=== PATIENT | female | born 1965 | race Caucasian/White ===

== ENCOUNTER 2025-03-07 08:53 | Outpatient (AMB) | payer OTHER, SELFPAY ==
--- OUTSIDE RECORDS SUMMARY | 2023-11-04 04:30 | XMS_ITS ---
Author Organization [facility] Prac mila Address [address] [place] [address] Care Team Providers Care Sack Department Supervisor Name Role Phone Ernestine Pace Primary Care Provider PazKhangah Unavailable [phone] REASON FOR VISIT CPE Encounters Encounter Location Date Provider Diagnosis [facility] [address] [place] [phone] 2023 Renae Mullen Plan Of Treatment Next Appt Details Provider Name:Renae Mullen, 04/05/2025 08:30:00 AM, [address] [place] [address], [phone], Progress Notes * DAVID CAMILA ADOB:[birth year] (59 yo F)Acc No.[id number]:11/04/2023 Progress Notes Patient: CAMLIA JON Provider: BRIAN Rivas :1965 A ge:58 Y S ex:Female Date:11/04/2023 C HN#:[id number] Address:[address] [place] [address] KAYCEE CERVANTES RSRia, [id number] Pcp:Ernestine Pace Subjective: * Chief Complaints: * C PE Care Plan Details* * Electronic signature of Steffanie Mullen PA-C on 03/07/2025 at 09:42 AM EDT Sign off status: Pending * Provider: BRIAN Rivas Date: 0 11/04/2023 Generated for Swetha coyle/Denita/eTransmitting on: 1 09:42 AM EDT
--- OUTSIDE RECORDS SUMMARY | 2024-01-25 05:00 | XMS_ITS ---
Author Organization [facility] mila Address [address] [place] [address] Care Team Providers Care Point Of Care Specialist Name Role Phone Ernestine Pace Primary Care Provider PazKhangah Unavailable [phone] REASON FOR VISIT CPE Encounters Encounter Location Date Provider Diagnosis [facility] [address] [place] [phone] 2023 Renae Mullen Plan Of Treatment Next Appt Details Provider Name:Renae Mullen, 04/05/2025 08:30:00 AM, [address] [place] [address], [phone], Progress Notes * DAVID CAMILA ADOB:[birth year] (59 yo F)Acc No.[id number]:01/25/2024 Progress Notes Patient: CAMILA JON Provider: BRIAN Rivas :1965 A ge:58 Y S ex:Female Date:01/25/2024 C HN#:[id number] Address:[address] [place] [address] KAYCEE CERVANTES RSRia, [id number] Pcp:Ernestine Pace Subjective: * Chief Complaints: * C PE Billing Information: * Procedure Codes: Care Plan Details* * Electronic signature of Steffanie Mullen PA-C on 03/07/2025 at 09:43 AM EDT Sign off status: Pending * Provider: BRIAN Rivas Date: 0 01/25/2024 Generated for Printi ng/Faxing/eTransmitting on: 1 09:43 AM EDT
--- NOTE | 2025-03-07 09:02 | MHC.OFFVIS ---
Intake Visit Reasons: 6m HPI Comments Details: 59 y/o woma with underlying h/o obesity, depression, anxiety, pre-diabetic, TALIB on CPAP, nasal sinus area osteomylitis, and migraine. She is female presenting with a follow-up for management of headache, insomnia, and menopausal symptoms. She has been effectively managing her headaches with Topamax and does not report frequent headaches currently. Insomnia remains a significant concern, for which she uses a CPAP machine without notable improvement in her sleep quality. She acknowledges difficulty with mood regulation, feeling unusually irritable and frustrated in scenarios that do not typically warrant such reactions. These changes coincide with her experiencing menopausal symptoms, which she believes are nearing resolution. The patient's lifestyle includes regular physical activity by walking [place], albeit not through dedicated exercise routines. She is currently on a regimen that includes 100 mg of Paralec daily and somatriptan for headaches, for which a refill request was made. Adjustments in her Topamax dosing have been suggested to alleviate mood instability. [facility] Medical History (Updated 03/07/25 @ 09:05 by Nadja Berg MD) Prediabetes Anxiety TALIB on CPAP Depression Family History (Updated 03/05/25 @ 15:38 by SWATHI Vicente) Maternal Grandfather Diabetes mellitus Review of Systems Narrative - Neurologic: Reports headaches well-controlled with Topamax. - Psychiatric: Reports insomnia; reports mood fluctuations and frustration. - Endocrine: Reports menopausal symptoms; nearing the end of menopause. - Sleep: Reports historically poor sleep quality despite CPAP use. - Musculoskeletal: Reports being physically active by walking routinely. Physical Exam Neuro Other: Mental Status: Alert and oriented to person, place, and time. Normal attention. Normal spontaneous speech, fluency, and comprehension. No obvious issues with mood and memory. Affect is appropriate. Cranial Nerves: CN II: Visual marie full to confrontation, visual acuity intact. CN III, IV, : Pupils equal, round, reactive to light and accommodation. Extraocular movements are normal. CN V: Facial sensation is normal. CN VII: Facial movements symmetrical. CN VIII: Hearing intact to bedside conversation is normal. CN IX, X: Palate elevates symmetrically. CN XI: Shoulder shrug and head turn symmetrical. CN XII: Tongue midline without atrophy or fasciculations. Extrapyramidal: Full facial expressions and blinking. No rigidity. Movements are appropriate with no tremor or abnormality. Speech: Normal; no dysarthria or tremor. Assessment & Plan Assessment & Plan (1) Migraine without aura: Comment: Meds tried: Topiramate, Tylenol, Advil, Excedrin Code(s): G43.009 - Migraine without aura, not intractable, without status migrainosus Category: Medical Qualifiers: Status migrainosus presence: without status migrainosus Intractability: not intractable Qualified Code(s): G43.009 - Migraine without aura, not intractable, without status migrainosus Plan I discussed with the patient her reported symptoms, specifically addressing her headache management, insomnia, and mood fluctuations potentially related to menopausal changes. The effectiveness of Topamax in controlling her headaches was noted and a refill of somatriptan was acknowledged. I explored the patient's difficulty with sleep and suggested maintaining or increasing physical activity as a sustainable solution. Regarding her menopausal symptoms, I advised adjusting her Topamax dosage, considering its potential mood-stabilizing effects, by taking half a tablet twice daily instead of a single daily dose. A follow-up was recommended to assess the continued efficacy of these adjustments in managing her symptoms. Medications: New sumatriptan succinate 50 mg orally one a day as needed; do not exceed 4 doses per 24 hrs 10 tabs 5RF Refilled topiramate 100 mg PO BEDTIME 90 tabs 1RF Coding Level of Care Code Est Pt Level 4 (19247) Diagnoses Migraine without aura and without status migrainosus, not intractable G43.009 Status migrainosus presence: without status migrainosus Intractability: not intractable
--- OUTSIDE RECORDS SUMMARY | 2025-03-07 09:38 | XMS_ITS | Encounter Summary ---
Author Organization [facility] Address [address] [place] [address] Phone Care Team Providers Care Hand Edger Name Role Phone Shahriar Gonzalez MD Unavailable Unava ilRenae Blackburn Primary Care Provider [phone] Eileen Santoro MD Unavailable [phone] Encounter Details Date Type Department Care Team (Latest Contact Info) Description 12/22/2021 Transcribe Orders Virtual Department [address] [place] [address] Rick Benitez MD [address] [place] [phone] Breast screening (Primary Dx) Social History Tobacco Use Types Packs/Day Years Used Date Smoking Tobacco: Never Smokeless Tobacco: Never Alcohol Use Standard Drinks/Week Comments Yes 0 (1 standard drink = 0.6 oz pur e alcohol) 1-2 drinks per month Comments No Sex and Gender Information Value Date Recorded Sex Assigned at Female 10/10/2020 1:49 PM EDT Legal Sex Female 6:21 PM EST Gender Identity Female 09/30/2020 11:22 AM EDT Sexual Orientation Straight 09/30/2020 11 :22 AM EDT documented as of this encounter Plan of Treatment Upcoming Encounters Date Type Department Care Team (Late st Contact Info) Description 07/04/2025 8:00 AM EST Office Visit [facility] [address] [place] [address] [place] [address] KevinGali degroot, ADOLESCENT COUNSELOR [address] [facility], 1st [place] [address] 08/06/2025 9:30 AM EDT Appointment [facility] Imaging - Ultrasound, Main [address] [address] Pito Jamil MD, FACS [address] [place] [phone] [email or web address] 08/06/2025 10:30 AM EDT Office Visit [facility] Head and Neck Cancer Division [address] [place] [address] Pito Jamil MD, FACS [address] [place] [phone] [email or web address] documented as of this encounter Results * BI MAMMOGRAM SCREENING WITH TOMOSYNTHESIS WITH CAD (BILATERAL) (08/10/2022 7:36 AM EDT) Anatomical Region Laterality Modality Breast Left, Breast Right, Breast Bilateral Bila teral Mammography 08/10/2022 11:3 0 AM EDT Impressions 08/10/2022 11:47 AM EDT BILATERAL BREASTS: Negative, no specific mammographic evidence of malignancy. Normal interval follow-up is recommended in 12 months. BI-RADS: BI-RADS CATEGORY: 1 - Negative. DENSITY: There are scattered fibroglandular densities. Narrative 08/10/2022 11:47 AM EDT STUDY: BI MAMMOGRAM SCREENING WITH TOMOSYNTHESIS WITH CAD (BILATERAL) TECHNIQUE: Bilateral full-field digital screening mammography is obtained and read in conjunction with computer-aided detection. Tomosynthesis as well as 2-D C view imaging were obtained. COMPARISON: Comparison made to multiple prior, most recent August 07, 2021, and most remote January 07, 2015. BREAST COMPOSITION: There are scattered areas of fibroglandular density BILATERAL BREASTS: No significant masses, suspicious calcifications or other abnormalities are seen in either breast. Procedure Note Cherie Villasenor MD - 08/10/2022 STUDY: BI MAMMOGRAM SCREENING WITH TOMOSYNTHESIS WITH CAD (BILATERAL) TECHNIQUE: Bilateral full-field digital screening mammography is obtainedand read in conjunction with computer-aided detection. Tomosynthesis aswell as 2-D C view imaging were obtained. COMPARISON: Comparison made to multiple prior, most recent August 07, 2021,and most remote January 07, 2015. BREAST COMPOSITION: There are scattered areas of fibroglandulardensity BILATERAL BREASTS: No significant masses, suspicious calcifications orother abnormalities are seen in either breast. IMPRESSION: BILATERAL BREASTS: Negative, no specific mammographic evidence ofmalignancy. Normal interval follow-up is recommended in 12 months. BI-RADS: BI-RADS CATEGORY: 1 - Negative. DENSITY: There are scattered fibroglandular densities. us Provider Not In System PhD IMG MG EXAMS Final Result documented in this encounter Visit Diagnoses Diagnosis Breast screening- Primary Breast screening, unspecified Breast screening Breast screening, unspecified documented in this encounter Care Teams Hand Edger Relationship Specialty Start Date End Date Renae Mullen PA [address] [place] [phone] [email or web address] PCP - General 05/08/20 Shahriar Gonzalez MD Historical LMR Provider 03/03/17 Eileen Santoro MD [address] [place] [address] [email or web address] Infectious Diseases 10/02/20 documented as of this encounter Additional Source Comments The information contained in this document represents components of the legal health record. It is not the complete legal health record.[facility]
--- OUTSIDE RECORDS SUMMARY | 2025-03-07 09:39 | XMS_ITS | Encounter Summary ---
Author Organization [facility] Address [address] [place] [address] Phone Care Team Providers Care Air Table Operator Name Role Phone Carla Alvarez Ying RISK CONTROL DIRECTOR Unavailable [phone] Chandrika Vidal RISK CONTROL DIRECTOR Unavailable [phone] Shahriar Gonzalez MD Unavailable Unava Vika Sheehan RD Unavailable [email or web address] Renae Mullen Primary Care Provider [phone] Eileen Santoro MD Unavailable [phone] Encounter Details Date Type Department Care Team (Latest Contact Info) Description 09/26/2020 Transcribe Orders [address] [place] [address] Eileen Santoro MD [address] [place] [address] [address] [place] [address] [email or web address] Edema of pharynx or nasopharynx (Primary Dx); Migraine without status migrainosus, not intractable, unspecified migraine type Social History Tobacco Use Types Packs/Day Years [...] Description 07/04/2025 8:00 AM EST Office Visit [facility] [address] [place] [address] [place] [address] Gali Lew, PRE K SPECIAL EDUCATION TEACHER [address] [facility], 1st [place] [address] 08/06/2025 9:30 AM EDT Appointment [facility] Imaging - Ultrasound, [address] [address] Pito Jamil MD, FACS [address] [place] [address] [email or web address] 08/06/2025 10:30 AM EDT Office Visit [facility] Head and Neck Cancer Division [address] [place] [address] Pito Jamil MD, FACS [address] [place] [address] [email or web address] documented as of this encounter Results * CBC and differential (09/26/2020 10:50 AM EDT) WBC 6.44 4.00 - 11.00 K/uL [facility] RBC 3.90 3.72 - 5.30 M/uL [facility] HGB 11.4 10.6 - 15.5 g/dL [facility] HCT 35.2 32.0 - 45.0 % [facility] PLT 388 140 - 430 K/uL [facility] MCV 90.3 78.0 - 97.0 fL [facility] MCH 29.2 25.0 - 33.0 pg [facility] MCHC 32.4 32.0 - 36.0 g/dL [facility] RDW 12.8 11.0 - 16.0 % [facility] MPV 10.8 8.4 - 12.8 fl [facility] NRBC 0.00 0 /100 WBCs [facility] ABSOLUTE NRBC 0.00 0 K/uL [facility] DIFF METHOD Auto [facility] NEUTS 61.8 43.0 - 75.0 % [facility] LYMPHS 19.4 18.2 - 47.4 % [facility] MONOS 10.4 4.00 - 11.00 % [facility] EOS 6.8 0.0 - 8.0 % [facility] BASOS 1.1 0.0 - 2.0 % [facility] Granulocytes, immature (%) 0.5 0.0 - 0.9 % [facility] ABSOLUTE NEUTS 3.98 1.80 - 7.70 K/uL [facility] ABSOLUTE LYMPHS 1.25 1.00 - 3.10 K/uL [facility] ABSOLUTE MONOS 0.67 0.20 - 0.80 K/uL [facility] ABSOLUTE EOS 0.44 0.00 - 0.80 K/uL [facility] ABSOLUTE BASOS 0.07 0.00 - 0.09 K/uL [facility] Granulocytes, immature 0.03 0.00 - 0.05 K/uL [facility] Blood 09/26/2020 10:5 0 AM EDT 09/26/2020 12:22 PM EDT us Eileen Santoro MD LAB BLOOD ORDERABLES Fin al Result [facility] [address] [place] [address] * (ABNORMAL) Basic metabolic panel (09/26/2020 10:50 AM EDT) SODIUM 140 133 - 146 mmol/L [facility] CHLORIDE 101 96 - 108 mmol/L [facility] POTASSIUM 3.7 3.3 - 5.1 mmol/L [facility] CO2 24 21 - 35 mmol/L [facility] BUN 14 6 - 19 mg/dL [facility] CREATININE 1.30 0.5 - 1.5 mg/dL [facility] GLUCOSE 202(H) 70 - 99 mg/dL [facility] CALCIUM 9.0 8.4 - 10.3 mg/dL [facility] EGFR 47(L) >59 mL/min/1.7 3m2 [facility] Comment:Estimated glomerular filtration rate calculated using the CKD-EPI equation. ANION GAP 19 10 - 20 mmol/L [facility] Blood 09/26/2020 10:5 0 AM EDT 09/26/2020 12:22 PM EDT us Eileen Santoro MD LAB BLOOD ORDERABLES Fin al Result [facility] [address] [place] [address] documented in this encounter Visit Diagnoses Diagnosis Edema of pharynx or nasopharynx- Primary Migraine without status migrainosus, not intractable, unspecified migraine type documented in this encounter Care Teams Air Table Operator Relationship Specialty Start Date End Date Renae Mullen PA [address] [place] [address] [email or web address] PCP - General 05/08/20 Carla Alvarez, RISK CONTROL DIRECTOR [address] [place] [address] Historical LMR Provider 03/03/17 2 Chandrika Vidal, BUTCH [address] [place] [address] Historical LMR Provider 03/03/17 2 Shahriar Gonzalez MD Historical LMR Provider 03/03/17 Vika Mckinney, RDCS Historical LMR Provider 03/03/17 05/24/21 Eileen Santoro MD [address] [place] [address] [address] [place] [address] [email or web address] Infectious Diseases 10/02/20 documented as of this encounter Additional Source Comments The information contained in this document represents components of the legal health record. It is not the complete legal health record.[facility]
--- OUTSIDE RECORDS SUMMARY | 2025-03-07 09:39 | XMS_ITS | Encounter Summary ---
Author Organization [facility] Address [address] [place] [address] Phone Care Team Providers Care Tile Sprayer Name Role Phone Carla Alvarez Ying RUBBER ATTACHER Unavailable [phone] Chandrika Vidal RUBBER ATTACHER Unavailable [phone] Shahriar Gonzalez MD Unavailable Unava Vika Sheehan RDCS Unavailable [email or web address] Unknown, Unknown Primary Care Provider Shahriar Granados MD Primary Care Provider Unavailable Renae Mullen Primary Care Provider [phone] Eileen Santoro MD Unavailable [phone] Encounter Details Date Type Department Care Team (Late st Contact Info) Description 03/15/2017 Ancillary Orders Virtual Department [address] [place] [address] Voiletta Sauceda MD [address] [address] Visit for screening mammogram Social History Tobacco Use Types Packs/Day Years Used Date Smoking Tobacco: Never Assessed Comments Unknown Sex and Gender Information Value Date Recorded Sex Assigned at Female 10/10/2020 1:49 PM EDT Legal Sex Female 6:21 PM EST Gender Identity Female 09/30/2020 11:22 AM EDT Sexual Orientation Straight 09/30/2020 11 :22 AM EDT documented as of this encounter Plan of Treatment Upcoming Encounters Date Type Department Care Team (Late st Contact Info) Description 07/04/2025 8:00 AM EST Office Visit [facility] [place] [address] Gali eLw, JEWELRY TECHNICIAN [address] [facility], [address] [place] [address] 08/06/2025 9:30 AM EDT Appointment [facility] Imaging - Ultrasound, Main [address] [address] Pito Jamil MD, FACS [address] [place] [address] [email or web address] 08/06/2025 10:30 AM EDT Office Visit [facility] Head and Neck Cancer Division [address] [place] [address] Pito Jamil MD, FACS [address] [place] [phone] [email or web address] documented as of this encounter Results * BI MAMMOGRAM SCREENING WITH TOMOSYNTHESIS WITH CAD (BILATERAL) (03/29/2017 4:25 PM EST) Anatomical Region Laterality Modality Breast Left, Breast Right, Breast Bilateral Bila teral Mammography 03/30/2017 8:57 AM EST Impressions 03/30/2017 9:06 AM EST No mammographic evidence of malignancy. BI-RADS CATEGORY: 1 - Negative. DENSITY: There are scattered fibroglandular densities. POS - [facility] Narrative 03/30/2017 9:06 AM EST Standard digital full-field 2-D C view and two-plane tomographic imaging was performed and compared with multiple prior studies, most recently 02/20/2016, with utilization of computer-aided detection. The breasts are composed of scattered fibroglandular densities. The stromal markings are essentially unchanged in overall appearance and distribution. No dominant spiculated mass, suspicious clustered microcalcifications, or focal zone of pathologic skin thickening or retraction are noted to have arisen in the interim. Violetta Sauceda MD IMG MG EXAMS Final Result documented in this encounter Visit Diagnoses Diagnosis Visit for screening mammogram Visit for screening mammogram documented in this encounter Care Teams Tile Sprayer Relationship Specialty Start Date End Date Unknown, Unknown, MD PCP - General 03/15/17 03/28/17 Shahriar Gonzalez MD PCP - General Internal Medicine 03/29/17 05/07/20 Renae Mullen PA [address] [place] [address] [email or web address] PCP - General 05/08/20 Carla Alvarez NP [address] [place] [address] Historical LMR Provider 03/03/17 2 Chandrika Vidal NP [address] [place] [address] Historical LMR Provider 03/03/17 2 Shahriar Gonzalez MD Historical LMR Provider 03/03/17 Vika Mckinney, AIMECS Historical LMR Provider 03/03/17 05/24/21 Eileen Santoro MD [address] [place] [address] [email or web address] Infectious Diseases 10/02/20 documented as of this encounter Additional Source Comments The information contained in this document represents components of the legal health record. It is not the complete legal health record.[facility]
--- OUTSIDE RECORDS SUMMARY | 2025-03-07 09:39 | XMS_ITS | Encounter Summary ---
Author Organization [facility] Address [address] [facility] [address] [place] [address] Phone Care Team Providers Care Assistant Therapy Aide Name Role Phone Carla Alvarez Ying STITCHER SET UP OPERATOR AUTOMATIC Unavailable [phone] Chandrika Vidal STITCHER SET UP OPERATOR AUTOMATIC Unavailable [phone] Shahriar Gonzalez MD Unavailable Unava Vika Sheehan RDCS Unavailable [email or web address] Gonzalez MD Primary Care Provider Unavailable Renae Mullen Primary Care Provider [phone] Eileen Santoro MD Unavailable [phone] Encounter Details Date Type Department Care Team (Late st Contact Info) Description 11/23/2017 Ancillary Orders Virtual Department [address] [place] [address] Violetta Sauceda MD [address] [address] Breast screening Social History Tobacco Use Types Packs/Day Years Used Date Smoking Tobacco: Never Assessed Comments No Sex and Gender Information Value [...] Description 07/04/2025 8:00 AM EST Office Visit [facility] [address] [place] [address] [place] [phone] Gali Lew, GLUE MAKER 22 [facility], [address] [place] [address] 08/06/2025 9:30 AM EDT Appointment [facility] - Ultrasound, Main [address] [address] Pito Jamil MD, FACS [address] [place] [address] [email or web address] 08/06/2025 10:30 AM EDT Office Visit [facility] [address] [place] [address] Pito Jamil MD, FACS [address] [place] [address] [email or web address] documented as of this encounter Results * BI MAMMOGRAM SCREENING WITH TOMOSYNTHESIS WITH CAD (BILATERAL) (05/23/2018 9:03 AM EST) Anatomical Region Laterality Modality Breast Left, Breast Right, Breast Bilateral Bila teral Mammography 05/23/2018 9:16 AM EST Impressions 05/23/2018 9:19 AM EST No mammographic change indicative of malignancy. Annual screening is recommended. BI-RADS CATEGORY: 2 - Benign finding. DENSITY: There are scattered fibroglandular densities. POS -CDHMAMA Narrative 05/23/2018 9:19 AM EST Bilateral full-field digital screening mammography is obtained and read in conjunction with computer-aided detection. Tomosynthesis as well as 2-D C view imaging of both breasts in two planes also obtained. Comparison made to multiple prior, most recent 03/29/2017, and most remote 12/16/2011. No dominant mass, architectural distortion, worrisome asymmetry, or suspicious calcification is identified. No skin or nipple finding of concern is appreciated. Lobulated faint soft tissue density lower right breast appears essentially unchanged on tomosynthesis as far back as 2012 and similar to 2012 2-D views. Procedure Note Jarett Rosales MD - 05/23/2018 Bilateral full-field digital screening mammography is obtained and read inconjunction with computer-aided detection. Tomosynthesis as well as 2-D Cview imaging of both breasts in two planes also obtained. Comparison madeto multiple prior, most recent 03/29/2017, and most remote 12/16/2011. No dominant mass, architectural distortion, worrisome asymmetry, orsuspicious calcification is identified. No skin or nipple finding ofconcern is appreciated. Lobulated faint soft tissue density lower rightbreast appears essentially unchanged on tomosynthesis as far back as 2013and similar to 2012 2-D views. IMPRESSION: No mammographic change indicative of malignancy. Annual screening isrecommended. BI-RADS CATEGORY: 2 - Benign finding. DENSITY: There are scattered fibroglandular densities. POS -CDHMAMA Violetta Sauceda MD IMG MG EXAMS Final Result documented in this encounter Visit Diagnoses Diagnosis Breast screening Breast screening, unspecified documented in this encounter Care Teams Assistant Therapy Aide Relationship Specialty Start Date End Date Shahriar Gonzalez MD PCP - General Internal Medicine 03/29/17 05/07/20 Renae Mullen PA [address] [place] [address] [email or web address] PCP - General 05/08/20 Carla Alvarez NP [address] [place] [address] Historical LMR Provider 03/03/17 2 Chandrika Vidal NP [address] [place] [address] Historical LMR Provider 03/03/17 2 Shahriar Gonzalez MD Historical LMR Provider 03/03/17 Vika Mckinney, RDCS [email or web address] Historical LMR Provider 03/03/17 05/24/21 Eileen Santoro MD [address] [place] [address] [email or web address] Infectious Diseases 10/02/20 documented as of this encounter Additional Source Comments The information contained in this document represents components of the legal health record. It is not the complete legal health record.[facility]
--- OUTSIDE RECORDS SUMMARY | 2025-03-07 09:40 | XMS_ITS | Encounter Summary ---
Author Organization [facility] Address [address] [facility] [address] [place] [address] Phone Care Team Providers Care Inbound Sales Advisor Name Role Phone Kim Carla He ELECTRICIAN SECOND Unavailable [phone] Chandrika Vidal NP Unavailable [phone] Shahriar Gonzalez MD Unavailable Unava Vika Sheehan RDCS Unavailable [email or web address] Renae Mullen Primary Care Provider [phone] Eileen Santoro MD Unavailable [phone] Encounter Details Date Type Department Care Team (Late st Contact Info) Description 09/06/2020 Ancillary Orders Virtual Department [address] [place] [address] Leann Champagne, BUTCH [address] [place] [address] Lymphadenopathy Social History Tobacco Use Types Packs/Day Years Used Date Smoking Tobacco: Never Assessed Comments No Sex and Gender Information Value Date Recorded Sex Assigned at Female 10/10/2020 1:49 PM EDT Legal Sex Female 6:21 PM EST Gender Identity Female 09/30/2020 11:22 AM EDT Sexual Orientation Straight 09/30/2020 11 :22 AM EDT documented as of this encounter Functional Status * Calculated C-SSRS Risk Score (Lifetime/Recent) Answer Date of Assessment Author No Risk Indicated 09/08/2020 7:26 PM EDT Josselin Monroe RN * Burns Suicide Severity Rating Scale (Screener/Recent Self-Report) Question Answer Date of Assessment Author 1. Wish to be (Past 1 Month) No 021 7:26 PM EDT Josselin Monroe, JAUN 2. Non-Specific Active Suici carey Thoughts (Past 1 Month) No 09/08/2020 7:26 PM EDT Justino Monroe RN 6. Suicidal Behavior (Lifetime) No 7:26 PM EDT Josselin Monroe, JAUN documented as of this encounter Plan of Treatment Upcoming Encounters Date Type Department Care Team (Late st Contact Info) Description 07/04/2025 8:00 AM EST Office Visit [facility] [address] [place] [address] [place] [address] Gali Lew, ACTUARIAL ASSISTANT [facility], [address] [place] [address] 08/06/2025 9:30 AM EDT Appointment [facility] - Ultrasound, Main [address] [address] Pito Jamil MD, FACS [address] [place] [address] [email or web address] 08/06/2025 10:30 AM EDT Office Visit [facility] [address] [place] [address] Pito Jamil MD, FACS [address] [place] [address] [email or web address] documented as of this encounter Visit Diagnoses Diagnosis Lymphadenopathy Enlargement of lymph nodes documented in this encounter Care Teams Inbound Sales Advisor Relationship Specialty Start Date End Date Renae Mullen PA [address] [place] [address] PCP - General 05/08/20 Carla Alvarez NP [address] [place] [address] Historical LMR Provider 03/03/17 2 Chandrika Vidal NP [address] [place] [address] Historical LMR Provider 03/03/17 2 Shahriar Gonzalez MD Historical LMR Provider 03/03/17 Vika Mckinney, AIMECS [email or web address] Historical LMR Provider 03/03/17 05/24/21 Eileen Santoro MD [address] [place] [address] [email or web address] Infectious Diseases 10/02/20 documented as of this encounter Additional Source Comments The information contained in this document represents components of the legal health record. It is not the complete legal health record.[facility]
--- OUTSIDE RECORDS SUMMARY | 2025-03-07 09:40 | XMS_ITS | Encounter Summary ---
Author Organization [facility] Address [address] [facility] [address] [place] [address] Phone Care Team Providers Care Case Filler Name Role Phone Shahriar Gonzalez MD Unavailable Unava ilRenae Blackburn Primary Care Provider [phone] Eileen Santoro MD Unavailable [phone] Encounter Details Date Type Department Care Team (Late st Contact Info) Description 12/22/2021 Procedure Pass [facility] - [address] [place] [address] Social History Tobacco Use Types Packs/Day Years Used Date Smoking Tobacco: Never Smokeless Tobacco: Never Alcohol Use Standard Drinks/Week Comments Yes 1 (1 standard drink = 0.6 oz pur [...] Description 07/04/2025 8:00 AM EST Office Visit [facility] [address] [place] [address] [place] [address] Gali Lew, CONDENSER WINDER [address] [facility], [address] [place] [address] 08/06/2025 9:30 AM EDT Appointment [facility] - [facility]ound, [facility] [address] [place] [address] Pito Jamil MD, FACS [address] [place] [address] [email or web address] 08/06/2025 10:30 AM EDT Office Visit [facility] [address] [place] [address] Pito Jamil MD, FACS [address] [place] [address] [email or web address] documented as of this encounter Visit Diagnoses Not on filedocumented in this encounter Care Teams Case Filler Relationship Specialty Start Date End Date Renae Mullen PA [address] [place] [address] PCP - General 05/08/20 Shahriar Gonzalez MD Historical LMR Provider 03/03/17 Eileen Santoro MD [address] [place] [address] [address] [place] [address] [email or web address] Infectious Diseases 10/02/20 documented as of this encounter Additional Source Comments The information contained in this document represents components of the legal health record. It is not the complete legal health record.[facility]
--- OUTSIDE RECORDS SUMMARY | 2025-03-07 09:40 | XMS_ITS | Encounter Summary ---
Author Organization [facility] Address [address] [facility] [address] [place] [address] Phone Care Team Providers Care Atm Servicer Name Role Phone Carla Alvarez Ying SECTION CREWS ACTIVITIES CLERK Unavailable [phone] Chandrika Vidal SECTION CREWS ACTIVITIES CLERK Unavailable [phone] Shahriar Gonzalez MD Unavailable Unava Vika Sheehan RDCS Unavailable [email or web address] Shahriar Gonzalez MD Primary Care Provider Unavailable Renae Mullen Primary Care Provider [phone] Eileen Santoro MD Unavailable [phone] Encounter Details Date Type Department Care Team (Late st Contact Info) Description 05/25/2019 Ancillary Orders [facility] Department [address] [place] [address] Shahriar Gonzalez MD Breast screening Social History Tobacco Use Types [...] Description 07/04/2025 8:00 AM EST Office Visit [facility] [address] [place] [address] [place] [address] Gali Lew, FORGE UTILITY WORKER [address] [facility], 1st [place] [address] 08/06/2025 9:30 AM EDT Appointment [facility] - Ultrasound, Main [address] [address] Pito Jamil MD, FACS [address] [place] [address] [email or web address] 08/06/2025 10:30 AM EDT Office Visit [facility] [address] [place] [address] Pito Jamil MD, FACS [address] [place] [address] [email or web address] documented as of this encounter Results * BI MAMMOGRAM SCREENING WITH TOMOSYNTHESIS WITH CAD (BILATERAL) (06/06/2019 8:52 AM EST) Anatomical Region Laterality Modality Breast Left, Breast Right, Breast Bilateral Bila teral Mammography 06/06/2019 9:01 AM EST Impressions 06/06/2019 9:02 AM EST RIGHT breast: No mammographic evidence of malignancy. LEFT breast: No mammographic evidence of malignancy. RECOMMENDED FOLLOWUP: Routine screening mammography is recommended, as clinically appropriate. The results will be sent by mail to the patient. BI-RADS CATEGORY: 1 - Negative. BREAST COMPOSITION: There are scattered fibroglandular densities. POS - CDHMAMA Narrative 06/06/2019 9:02 AM EST EXAM: BI MAMMOGRAM SCREENING WITH TOMOSYNTHESIS WITH CAD (BILATERAL) HISTORY: Screening. * Annual COMPARISON: Prior mammograms, most recent 05/23/2018 and dating back to 12/28/2012. TECHNIQUE: Digital breast tomosynthesis was performed in CC and MLO projections. Reconstructed 2-D C-views generated from the tomosynthesis images. Images interpreted in conjunction with R-2 Image Head Of Measurement & Insights computer-aided detection (CAD). FINDINGS: BREAST COMPOSITION: There are scattered areas of fibroglandular density. RIGHT breast: No suspicious masses, suspicious areas of architectural distortion or suspicious microcalcifications. LEFT breast: No suspicious masses, suspicious areas of architectural distortion or suspicious microcalcifications. Procedure Note Shaial Bennett MD - 06/06/2019 EXAM: BI MAMMOGRAM SCREENING WITH TOMOSYNTHESIS WITH CAD (BILATERAL) HISTORY: Screening. * Annual COMPARISON: Prior mammograms, most recent 05/23/2018 and dating back to12/28/2012. TECHNIQUE: Digital breast tomosynthesis was performed in CC and MLOprojections. Reconstructed 2-D C-views generated from the tomosynthesisimages. Images interpreted in conjunction with R-2 Image Checkercomputer-aided detection (CAD). FINDINGS: BREAST COMPOSITION: There are scattered areas of fibroglandular density. RIGHT breast: No suspicious masses, suspicious areas of architecturaldistortion or suspicious microcalcifications. LEFT breast: No suspicious masses, suspicious areas of architecturaldistortion or suspicious microcalcifications. IMPRESSION: RIGHT breast: No mammographic evidence of malignancy. LEFT breast: No mammographic evidence of malignancy. RECOMMENDED FOLLOWUP: Routine screening mammography is recommended, asclinically appropriate. The results will be sent by mail to the patient. BI-RADS CATEGORY: 1 - Negative. BREAST COMPOSITION: There are scattered fibroglandular densities. POS - CDHMAMA Shahriar Gonzalez MD IMG MG EXAMS Final Result documented in this encounter Visit Diagnoses Diagnosis Breast screening Breast screening, unspecified Breast screening Breast screening, unspecified documented in this encounter Care Teams Atm Servicer Relationship Specialty Start Date End Date Shahriar Gonzalez MD PCP - General Internal Medicine 03/29/17 05/07/20 Renae Mullen PA [address] [place] [address] PCP - General 05/08/20 Carla Alvarez NP [address] [place] [address] Historical LMR Provider 03/03/17 2 Chandrika Vidal NP [address] [place] [address] Historical LMR Provider 03/03/17 2 Shahriar Gonzalez MD Historical LMR Provider 03/03/17 Vika Mckinney, AIMECS [email or web address] Historical LMR Provider 03/03/17 05/24/21 Eileen Santoro MD [address] [place] [address] [email or web address] Infectious Diseases 10/02/20 documented as of this encounter Additional Source Comments The information contained in this document represents components of the legal health record. It is not the complete legal health record.[facility]
--- OUTSIDE RECORDS SUMMARY | 2025-03-07 09:40 | XMS_ITS | Encounter Summary ---
Author Organization [facility] Address [address] [facility] [address] [place] [address] Phone Care Team Providers Care Hide Handler Name Role Phone Carla Alvarez Ying ASBESTOS SIDING INSTALLER Unavailable [phone] Chandrika Vidal ASBESTOS SIDING INSTALLER Unavailable [phone] Shahriar Gonzalez MD Unavailable Unava Vika Sheehan RDCS Unavailable [email or web address] Renae Mullen Primary Care Provider [phone] Eileen Santoro MD Unavailable [phone] Encounter Details Date Type Department Care Team (Late st Contact Info) Description 05/08/2020 Ancillary Orders Virtual Department [address] [place] [address] Renae Mullen PA [address] [place] [address] [email or web address] Breast screening Social History Tobacco Use Types [...] 07/04/2025 8:00 AM EST Office Visit [facility] [address] [place] [address] [place] [address] Gali Lew, NUCLEAR PHARMACIST 22 [facility], [address] [place] [address] 08/06/2025 9:30 AM EDT Appointment [facility] - Ultrasound, Main [place] [address] [place] [address] Pito Jamil MD, FACS [address] [place] [address] [email or web address] 08/06/2025 10:30 AM EDT Office Visit [facility] Cancer Division [address] [place] [address] Pito Jamil MD, FACS [address] [place] [address] [email or web address] documented as of this encounter Results * BI MAMMOGRAM SCREENING WITH TOMOSYNTHESIS WITH CAD (BILATERAL) (06/10/2020 8:40 AM EST) Anatomical Region Laterality Modality Breast Left, Breast Right, Breast Bilateral Bila teral Mammography 06/10/2020 8:43 AM EST Impressions 06/10/2020 8:47 AM EST No mammographic signs of malignancy. Annual screening is recommended. BI-RADS CATEGORY: 1 - Negative. DENSITY: There are scattered fibroglandular densities. Narrative 06/10/2020 8:47 AM EST Bilateral mammography is performed in conjunction with computed aided detection. 3-D tomography along with 2-D C view imaging was also performed. Comparison made to previous dated as far back as 01/04/2014 and as recent as 06/06/2019. No suspicious masses, areas of architectural distortion or suspicious microcalcifications. Procedure Note Stephane Kwong MD - 06/10/2020 Bilateral mammography is performed in conjunction with computed aideddetection. 3-D tomography along with 2-D C view imaging was alsoperformed. Comparison made to previous dated as far back as 01/04/2014 andas recent as 06/06/2019. No suspicious masses, areas of architectural distortion or suspiciousmicrocalcifications. IMPRESSION: No mammographic signs of malignancy. Annual screening is recommended. BI-RADS CATEGORY: 1 - Negative. DENSITY: There are scattered fibroglandular densities. Renae TORRES IMG MG EXAMS Final Result documented in this encounter Visit Diagnoses Diagnosis Breast screening Breast screening, unspecified Breast screening Breast screening, unspecified documented in this encounter Care Teams Hide Handler Relationship Specialty Start Date End Date Renae Mullen PA [address] [place] [address] [email or web address] PCP - General 05/08/20 Carla Alvarez NP [address] [place] [address] Historical LMR Provider 03/03/17 2 Chandrika Vidal NP [address] [place] [address] Historical LMR Provider 03/03/17 2 Shahriar Gonzalez MD Historical LMR Provider 03/03/17 Vika Mckinney, RDCS Historical LMR Provider 03/03/17 05/24/21 Eilene Santoro MD [address] [place] [address] [email or web address] Infectious Diseases 10/02/20 documented as of this encounter Additional Source Comments The information contained in this document represents components of the legal health record. It is not the complete legal health record.[facility]
--- OUTSIDE RECORDS SUMMARY | 2025-03-07 09:40 | XMS_ITS | Encounter Summary ---
Author Organization [facility] Address [address] [facility] [address] [place] [address] Phone Care Team Providers Care Site Worker Name Role Phone Carla Alvarez Ying COIL TAPER Unavailable [phone] Chandrika Vidal COIL TAPER Unavailable [phone] Shahriar Gonzalez MD Unavailable Unava Vika Sheehan RDCS Unavailable [email or web address] Renae Mullen Primary Care Provider [phone] Eileen Santoro MD Unavailable [phone] Encounter Details Date Type Department Care Team (Late st Contact Info) Description 10/29/2020 Procedure Pass [facility] - CT Main [address] [address] Social History Tobacco Use Types Packs/Day Years [...] Description 07/04/2025 8:00 AM EST Office Visit [facility] [address] [place] [address] [place] [address] Gali Lew, JOB DEVELOPER 22 [facility], 1st [place] [address] 08/06/2025 9:30 AM EDT Appointment [facility] - Ultrasound, Main [address] [address] Pito Jamil MD, FACS [address] [place] [address] [email or web address] 08/06/2025 10:30 AM EDT Office Visit [facility] [address] [place] [address] Pito Jamil MD, FACS [address] [place] [address] [email or web address] documented as of this encounter Visit Diagnoses Not on filedocumented in this encounter Care Teams Site Worker Relationship Specialty Start Date End Date Renae Mullen PA [address] [place] [address] [email or web address] PCP - General 05/08/20 Carla Alvarez COIL TAPER [address] [place] [address] Historical LMR Provider 03/03/17 2 Chandrika Vidal NP [address] [place] [address] Historical LMR Provider 03/03/17 2 Shahriar Gonzalez MD Historical LMR Provider 03/03/17 Mckinney, SANJAY [email or web address] Historical LMR Provider 03/03/17 05/24/21 Eileen Santoro MD [address] [place] [address] [email or web address] Infectious Diseases 10/02/20 documented as of this encounter Additional Source Comments The information contained in this document represents components of the legal health record. It is not the complete legal health record.[facility]
--- OUTSIDE RECORDS SUMMARY | 2025-03-07 09:40 | XMS_ITS | Encounter Summary ---
Author Organization [facility] Address [address] [facility] [facility] [address] [place] [address] Phone Care Team Providers Care Double End Tenon Operator Name Role Phone Carla Alvarez Ying ACOUSTICAL LOGGING ENGINEER Unavailable [phone] Chandrika Vidal ACOUSTICAL LOGGING ENGINEER Unavailable [phone] Shahriar Gonzalez MD Unavailable Unava Vika Sheehan RDCS Unavailable [email or web address] Renae Mullen Primary Care Provider [phone] Eileen Santoro MD Unavailable [phone] Encounter Details Date Type Department Care Team (Late st Contact Info) Description 05/08/2020 Procedure Pass [facility] - [address] [place] [address] Social History Tobacco Use Types Packs/Day Years [...] Description 07/04/2025 8:00 AM EST Office Visit [facility] [address] [place] [address] [place] [id number] Gali Lew, IMAGING NURSE [address] [facility] [place] [address] 08/06/2025 9:30 AM EDT Appointment [facility]ound, [address] [place] [address] Pito Jamil MD, FACS [address] [place] [address] [email or web address] 08/06/2025 10:30 AM EDT Office Visit [facility] [address] [place] [address] Pito Jamil MD, FACS [address] [place] [id number] [email or web address] documented as of this encounter Visit Diagnoses Not on filedocumented in this encounter Care Teams Double End Tenon Operator Relationship Specialty Start Date End Date Renae Mullen PA [address] [place] [id number] [email or web address] PCP - General 05/08/20 Carla Alvarez, ACOUSTICAL LOGGING ENGINEER [address] [place] [id number] Historical LMR Provider 03/03/17 2 Chandrika Vidal NP [address] [place] [address] Historical LMR Provider 03/03/17 2 Shahriar Gonzalez MD Historical LMR Provider 03/03/17 Vika Mckinney, RDCS Historical LMR Provider 03/03/17 05/24/21 Eileen Santoro MD [address] [place] [address] [address] [place] [address] [email or web address] Infectious Diseases 10/02/20 documented as of this encounter Additional Source Comments The information contained in this document represents components of the legal health record. It is not the complete legal health record.[facility]
--- OUTSIDE RECORDS SUMMARY | 2025-03-07 09:41 | XMS_ITS | Encounter Summary ---
Author Organization [facility] Address [address] [facility] [address] [place] [address] Phone Care Team Providers Care Catalyst Operator Gasoline Name Role Phone Shahriar Gonzalez MD Unavailable Unava ilRenae Blackburn Primary Care Provider [phone] Eileen Santoro MD Unavailable [phone] Encounter Details Date Type Department Care Team (Late st Contact Info) Description 07/18/2021 Procedure Pass [facility] - [address] [place] [address] Social History Tobacco Use Types Packs/Day Years [...] Description 07/04/2025 8:00 AM EST Office Visit [facility] [address] [place] [address] [place] [phone] Gali Lew, TEST ENGINE EVALUATOR [address] [facility] [place] [address] 08/06/2025 9:30 AM EDT Appointment [facility]ound, [facility] [address] [place] [address] Pito Jamil MD, FACS [address] [place] [address] [email or web address] 08/06/2025 10:30 AM EDT Office Visit [facility] [address] [place] [address] Pito Jamil MD, FACS [address] [place] [address] [email or web address] documented as of this encounter Visit Diagnoses Not on filedocumented in this encounter Care Teams Catalyst Operator Gasoline Relationship Specialty Start Date End Date Renae Mullen PA [address] [place] [phone] [email or web address] PCP - General 05/08/20 Shahriar Gonzalez MD Historical LMR Provider 03/03/17 Eileen Santoro MD [address] [place] [address] [address] [place] [address] [email or web address] Infectious Diseases 10/02/20 documented as of this encounter Additional Source Comments The information contained in this document represents components of the legal health record. It is not the complete legal health record.[facility]
--- OUTSIDE RECORDS SUMMARY | 2025-03-07 09:41 | XMS_ITS | Clinical Summary ---
Author Organization [facility] Address [address] [place] [address] Phone Care Team Providers Care Health Policy Nurse Name Role Phone Shahriar Gonzalez MD Unavailable Unava ilable Renae Mullen Primary Care Provider [phone] Eileen Santoro MD Unavailable [phone] Allergies Active Allergy Reactions Criticality Noted Date Comments Asparagus Unknown 08/13/2014 Atenolol Unknown 08/13/2014 Difficulty breathing Fish Swelling 08/13/2014 swordfish Penicillin Rash Medium 08/13/2014 Developed rash and eos 2-3 weeks into unasyn course in 09/2020 Penicillins 05/04/2022 Medications omega 7-ykb-krs-fish oil 1,000 mg (120 mg-180 mg) Cap Take 1 capsule by mouth daily. Active omeprazole (PRILOSEC) 20 MG capsule Take 20 mg by mouth daily. Active cholecalciferol (VITAMIN D3) 25 MCG (1,000 unit) tablet Take by mouth daily. Active lancing device with lancets Kit 1 each by Miscellaneous route 2 (two) times a day. 1 each 09/14/19 21 Active ONETOUCH VERIO METER Misc meter by Miscellaneous route 2 (two) times a day. 1 each 09/14/19 21 Active loratadine-pseud oephedrine (LORATADINE-D) 10-240 mg per 24 hr tablet 1 tablet. Active topiramate (TOPAMAX) 100 MG tablet TAKE 1 TABLET BY MOUTH EVERY DAY FOR 90 DAYS 08/21/19 22 Active coenzyme Q10 100 mg capsule 1 capsule. Active atorvastatin (LIPITOR) 80 MG tablet Take 1 tablet by mouth daily. Active escitalopram oxalate (LEXAPRO) 20 MG tablet 09/30/19 23 Active lisinopril (PRINIVIL,ZESTRI L) 10 MG tablet 07/13/19 23 Active insulin pen needles, disposable, (BD ULTRA-FINE MINI PEN NEEDLE) 31 gauge x 07/30 NdleIndications: Type 2 diabetes mellitus with hyperglycemia, with long-term current use of insulin Use to inject insulin once daily 100 each 3 12/27/19 24 Active alcohol PadMIndications: Type 2 diabetes mellitus with hyperglycemia, with long-term current use of insulin Use 2 times a day, as directed. 200 each 12/27/19 24 Active MOUNJARO 12.5 mg/0.5 mL PnIj subcutaneous penIndications:T ype 2 diabetes mellitus with hyperglycemia, with long-term current use of insulin Inject 0.5 mL (12.5 mg total) under the skin every 7 days. 6 mL 3 06/29/19 25 Active insulin glargine (LANTUS SOLOSTAR U-100 INSULIN) 100 unit/mL (3 mL) InPn injection penIndications:T ype 2 diabetes mellitus with hyperglycemia, with long-term current use of insulin Inject up to 36 units daily 45 mL 01/09/20 25 Active DEXCOM G7 SENSOR DeviIndications: Type 2 diabetes mellitus with hyperglycemia, with long-term current use of insulin USE TO CONTINUOUSLY MONITOR BLOOD SUGARS, WEAR ON THE BACK OF THE UPPER ARM, CHANGE EVERY 10 DAYS 9 each 3 01/09/20 Active Active Problems Problem Noted Date Diagnosed Date Hyperlipidemia 12/17/2021 Assessment & Plan (01/03/2025 8:23 AM EDT): Reviewed most recent lipid panel, no updates since last visit, has pending labs to be done LDL elevated, but improved mildly compared to previous draw LDL goal < 70 with DM On high intensity statin Encouraged continued efforts at healthy lifestyle Assessment & Plan (06/29/2024 8:48 AM EST): Reviewed most recent lipid panel, no updates since last visit, has pending labs to be done LDL elevated, but improved mildly compared to previous draw LDL goal < 70 with DM On high intensity statin Encouraged continued efforts at healthy lifestyle Assessment & Plan (12/27/2023 10:00 AM EDT): Reviewed most recent lipid panel, no updates since last visit LDL elevated, but improved mildly compared to previous draw LDL goal < 70 with DM Was not consistently taking statin but now has resumed Encouraged continued efforts at healthy lifestyle Assessment & Plan (05/27/2023 10:12 AM EST): Reviewed updated lipid panel, no updates since last visit LDL elevated, but improved mildly compared to previous draw LDL goal < 70 with DM Not currently on statin, plans to discuss this with primary care at upcoming appointment Encouraged continued efforts at healthy lifestyle Assessment & Plan (01/20/2023 8:53 AM EDT): Reviewed updated lipid panel, no updates since last visit LDL elevated, but improved mildly compared to previous draw LDL goal < 70 with DM On high intensity statin Encouraged continued efforts at healthy lifestyle Assessment & Plan (10/20/2022 10:54 AM EDT): Reviewed updated lipid panel LDL elevated, but improved mildly compared to previous draw LDL goal < 70 with DM On high intensity statin Encouraged continued efforts at healthy lifestyle Assessment & Plan (07/20/2022 9:27 AM EST): No updated lipid panel since last visit, labs placed today to repeat lipid panel LDL elevated LDL goal < 70 with DM On high intensity statin Assessment & Plan (02/03/2022 10:51 AM EDT): No updated lipid panel since last visit LDL elevated LDL goal < 70 with DM Continues on high intensity statin Assessment & Plan (12/30/2021 12:10 PM EDT): No updated lipid panel since last visit LDL elevated LDL goal < 70 with DM Continues on high intensity statin Assessment & Plan (12/17/2021 10:32 AM EDT): Most recent lipid panel reviewed LDL elevated LDL goal < 70 with DM On statin Cellulitis due to MRSA 10/03/2020 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 Due for routine labs, lab orders are in by PCP, plans to have these done before upcoming visit, most recent labs reviewed. GFR in optimal range. Lifestyle is very healthy in terms of diet and exercise, encouraged continuation of these efforts We will follow up in 6 months, but Megan is encouraged to reach out to me with any questions or concerns Assessment & Plan (11/15/2024 7:56 PM EDT): CGM reviewed Tendency to drop low overnight and more significant drop this morning that Megan was symptomatic of Recommend reducing basal insulin can start with reduction to 27 units, if lows persist should further reduce to 24 units Lower readings seem to be more singidicant with current CGM that was started 11/13, could be possible that it is a faulty CGM, but Megan was symptomatic of hypoglycemia this morning which is why reduced dose is warranted Will follow up further next month, but Megan is encouraged to reach out with any further concerns of hypoglycemia Assessment & Plan (06/29/2024 8:47 AM EST): Excellent blood sugars per CGM Continues on GLP1/GIP and basal insulin, tolerating both well, does endorse low blood sugars, symptoms in the 70s, recommend decreasing basal insulin to 30 units daily Up to date on eye and foot exam. Due for routine labs, lab orders are in by PCP, plans to have these done before upcoming visit, most recent labs reviewed. GFR in optimal range. Lifestyle is very healthy in terms of diet and exercise, encouraged continuation of these efforts We will follow up in 6 months, but Megan is encouraged to reach out to me with any questions or concerns Assessment & Plan (12/27/2023 9:58 AM EDT): Excellent blood sugars per CGM Continues on GLP1/GIP and basal insulin, tolerating both well, denies side effects and low blood sugars Up to date on eye and foot exam. Due for routine labs, seeing PCP next month for annual phyical, most recent labs reviewed. GFR in optimal range. Lifestyle is very healthy in terms of diet and exercise, encouraged continuation of these efforts We will follow up in 6 months, but Megan is encouraged to reach out to me with any questions or concerns Assessment & Plan (05/27/2023 10:11 AM EST): CGM reveals worsening control, still quite a significant improvement in average since optimizing GLP1/GIP, but average is slowly increasing Continues on basal insulin and GLP-1/GIP, tolerating these well Discussed room to optimize Mounjaro to aid in prandial elevations, Megan would like to move forward with a dose increase, glucose reduction and weight loss are dose dependent so increasing dosage would help with both of these Megan has a few weeks of current dose left, we discussed increasing insulin by 10-20% during this time to aid in elevations, and then decreasing back down to 40 units once increasing Mounjaro dose Discussed continuation of home CGM use during this time as it will aid in identifying patterns in terms of lifestyle and medication in which adjustments can be made Up to date on eye and foot exam. Encouraged to schedule next eye exam as it will be due soon. Up to date on routine labs, these were reviewed. GFR in optimal range. Lifestyle is very healthy in terms of diet and exercise, encouraged continuation of these efforts We will follow up in December, but Megan is encouraged to reach out to me with any questions or concerns Assessment & Plan (01/20/2023 8:53 AM EDT): CGM reveals improving control, spending slightly more time in range, minimal time in TAR2 and a significant improvement in average since optimizing GLP1/GIP Continues on basal insulin and GLP-1/GIP, tolerating these well Discussed room to optimize Mounjaro which would lead to a decrease in insulin, Megan would like to move forward with a dose increase, glucose reduction and weight loss are dose dependent so increasing dosage would help with both of these Discussed continuation of home CGM use during this time as it will aid in identifying patterns in terms of lifestyle and medication in which adjustments can be made Up to date on eye and foot exam. Up to date on routine labs, these were reviewed. GFR in optimal range, no anemia. Lifestyle is very healthy in terms of diet and exercise, encouraged continuation of these efforts We will follow up in 3 months, but Megan is encouraged to reach out to me with any questions or concerns Assessment & Plan (10/20/2022 10:53 AM EDT): CGM reveals improving control, spending slightly more time in range, minimal time in TAR2 and a significant improvement in average since optimizing GLP1/GIP Continues on basal insulin and GLP-1/GIP, tolerating these well Was told insurance will stop covering Mounjaro after 11/14, advised we can submit prior authorization at this time since Megan has shown significant improvement since starting on Mounjaro Discussed room to optimize Mounjarigo and Megan would like to hold off on this which I think is reasonable with current control, glucose reduction and weight loss are dose dependent so increasing dosage would help with both of these in the future if needed Discussed continuation of home CGM use during this time as it will aid in identifying patterns in terms of lifestyle and medication in which adjustments can be made Up to date on eye and foot exam. Up to date on routine labs, these were reviewed. GFR in optimal range, no anemia. Lifestyle is very healthy in terms of diet and exercise, encouraged continuation of these efforts We will follow up in 3 months, but Megan is encouraged to reach out to me with any questions or concerns Assessment & Plan (07/20/2022 9:25 AM EST): CGM reveals poor control though slight improvements on CGM download with overall control, spending slightly more time in range, less time very high and a slight improvement in average Continues on basal insulin and GLP-1/GIP Discussed room to optimize Mounjaro and Megan would like to, glucose reduction and weight loss are dose dependent so increasing dosage should help with both of these Discussed continuation of home CGM use during this time as it will aid in identifying patterns in terms of lifestyle and medication in which adjustments can be made Concerns of leg pain were discussed today, reviewed neuropathy and signs consistent with this, could be possible that there was some nerve damage in the past from epidural and higher sugars are exacerbating these symptoms. Encouraged Megan to discuss leg pain with PCP at follow up in the next few weeks to see if further work up should be done. Up to date on eye and foot exam. Overdue for routine labs and these were ordered today. Lifestyle is very healthy in terms of diet and exercise, encouraged continuation of these efforts We will follow up in 3 months to follow up on optimized dosage of Mounjaro, but Megan is encouraged to reach out to me with any questions or concerns Assessment & Plan (02/03/2022 10:51 AM EDT): CGM reveals poor control though slight improvements on CGM download with overall control, spending slightly more time in range, less time very high and a slight improvement in average Had a potential adverse reaction to Mounjaro, though interesting that Megan was able to tolerate initial Mounjaro dosing and one week at the increased dose before having any side effects so it could be possible that this was a coincidence Continues on Semglee and skipped this past week Mounjaro dose Megan would like to restart Mounjaro since was seeing glycemic improvement on 5 mg dose We discussed restarting Mounjaro on next scheduled day (Wednesday) at the initial dosing Megan reports continued hyperglycemia despite being on 36 units of Semglee with Mounjaro 2.5 mg, so recommend increasing Semglee up to 42 units while back on initial dosing of Mounjaro Discussed continuation of home CGM use during this time as it will aid in identifying patterns in terms of lifestyle and medication in which adjustments can be made Lifestyle is very healthy in terms of diet and exercise, encouraged continuation of these efforts We will follow up in 3 months to follow up on optimized dosage of Mounjaro, but Megan is encouraged to reach out to me with any questions or concerns Assessment & Plan (12/30/2021 12:09 PM EDT): CGM reveals poor control, blood sugars were higher the longer the trial went on, likely related to coming off a higher dose of Trulicity and going onto the starting dose of Mounjaro On initial dose of Mounjaro and continues on Semglee We discussed that the more profound hyperglycemia at the end of the trial is likely the Trulicity wearing off and the lower dose of Mounjaro. Megan is tolerating Mounjaro well and has 2 more doses of the initial dosing and then we can optimize dosage, prescription for 5mg dose sent to the pharmacy In the meantime, we will increase basal insulin by 20% to provide more background insulin throughout the day and evening We also discussed home CGM usage as increased monitoring during this time will aid in identifying patterns in terms of lifestyle and medication in which adjustments can be made Script for Dexcom sent to pharmacy, we did discuss that this may need to go through DME if there is no pharmacy benefit with insurance Lifestyle is very healthy in terms of diet and exercise, encouraged continuation of these efforts We will follow up in 4 weeks to review glycemic data on optimized dosage of Mounjaro, but Megan is encouraged to reach out to me with any questions or concerns Assessment & Plan (12/17/2021 11:57 AM EDT): Review of logged blood sugars reveals poor control, all BGs > 200 On Trulicity and Semglee, feels need for additional medication/change in regimen We discussed other options including SGLT-2 inhibitors and the new GLP-1/GIP receptor agonist, Mounjaro to aid in more robust glycemic control. Discussed route, mechanism of action, special considerations, and side effects to look out for. Given the information, Megan would like to try Mounjaro We discussed this would take the place of Trulicity, given similar action and qualities and can help with weight loss, dose dependent Provided sample of starting dose and reviewed that blood sugars may seem unchanged in the beginning use of Mounjaro due to having to start at lowest dose and coming off a higher dose of Trulicity We also discussed doing a CGM trial today and Megan was looking forward to following along with the sugars using, so we opted for a Dexcom pro Discussed CGM for home use briefly and we will further discuss at follow up in 2 weeks Lifestyle is very healthy in terms of diet and exercise, encouraged continuation of these efforts We will follow up in 2 weeks to review CGM data, but Megan is encouraged to reach out to me with any questions or concerns CGM Trial Type of Diabetes: Diabetes mellitus Type 2 Assessment/HPI: Megan is here today for CGM trial. Procedures: Glucose Monitoring: Type of Sensor: Dexcom Pro CGM Instruction: Patient Instructed on:, Calibrations, When to test BS, Troubleshooting, What to expect with the sensor, Patient instructed to remove sensor if redness, pain or bleeding occurs. . Insertion Site Selected: right arm Site Prep: Insertion site wiped with alcohol. Insertion: completed, area looks good, no redness, no bleeding. Plan: Patient will remove sensor and return in 2 weeks for follow up appointment. Encounters Date Type Department Care Team Description 01/06/2025 Refill [facility] [address] [place] [address] Gali Lew CNP Medication Refill 01/03/2025 8:00 AM EDT Office Visit [address] [place] [address] Gali Lew CNP Type 2 diabetes mellitus with hyperglycemia, with long-term current use of insulin (Primary Dx); Hyperlipidemia, unspecified hyperlipidemia type from Last 3 Months Family History Medical History Relation Comments Heart disease Father Diabetes mellitus Maternal Grandfather Hypertension Mother Relation Status Comments Father Maternal Grandfather Mother Alive Social History Tobacco Use Types Packs/Day Years Used Date Smoking Tobacco: Never Passive Smoke Exposure: Never Smokeless Tobacco: Never Tobacco Cessation:Counseling Given: Not Answered Alcohol Use Standard Drinks/Week Comments Not Currently 0 (1 standard drink = 0.6 oz pur e alcohol) 1-2 drinks per month Education Answer Date Recorded Are you interested in more education? Not on yue e 09/27/2022 Are you concerned about learning? Not on file 09/27/2022 No 09/27/2022 No 09/27/2022 Digital Access Answer Date Recorded No 10/10/2022 No 10/10/2022 Reliable internet access at home? Not on file 10/10/2022 Device with a working camera? Not on file Comments No Sex and Gender Information Value Date Recorded Sex Assigned at Female 10/10/2020 1:49 PM EDT Legal Sex Female 6:21 PM EST Gender Identity Female 09/30/2020 11:22 AM EDT Sexual Orientation Straight 09/30/2020 11 :22 AM EDT Last Filed Vital Signs Vital Sign Reading Time Taken Comments Blood Pressure 138/79 01/03/2025 8:07 AM EDT Pulse 83 01/03/2025 8:07 AM EDT Temperature 36.3 C (97.4 F) 12/27/2023 8:02 AM EDT Respiratory Rate 18 10/20/2022 9:17 AM EDT Oxygen Saturation 97% 06/29/2024 8:08 AM EST Inhaled Oxygen Concentration 28% 11:10 PM EDT Weight 103.6 kg (228 lb 6.4 oz) 01/03/2025 8:07 AM EDT Height 165.1 cm (5' 5 ) 01/03/2025 8:07 AM EDT Body Mass Index 38.01 01/03/2025 8:07 AM EDT Plan of Treatment Upcoming Encounters Date Type Department Care Team (Late st Contact Info) Description 07/04/2025 8:00 AM EST Office Visit [facility] [address] [place] [address] [place] [phone] Gali Lew, RN PICU [address] [place] [id number] 08/06/2025 9:30 AM EDT Appointment [facility], [facility] [address] [place] [address] Pito Jamil MD, FACS [address] [place] [phone] [email or web address] 08/06/2025 10:30 AM EDT Office Visit [facility] [address] [place] [phone] Pito Jamil MD, FACS [address] [place] [id number] [email or web address] Due Date Last Done Comments Adult Td,Tdap Booster 1967 DEPRESSION SCREENING 1979 HEPATITIS C SCREENING 1985 HIV ONE-TIME SCREENING (18-65 YEARS) 1985 PNEUMOCOCCAL VACCINES (50+ years) (1 of 2 - PCV) 1986 PAP SMEAR 1988 COLOGUARD 2012 COLONOSCOPY 2012 COLORECTAL CANCER SCREENING 2012 FIT TEST 2012 FOBT 2012 SIGMOIDOSCOPY 2012 VIRTUAL COLONOSCOPY 2012 RSV VACCINE (1 - Risk 50-74 years 1-dose series) 2017 DIABETIC EYE EXAM 09/12/2020 CREATININE LEVEL 07/21/2023 07/20/2022, 10/2021, 10/17/2020, Additional history exists POTASSIUM LEVEL 07/21/2023 07/20/2022, 06/0 07/2020, 10/08/2020, Additional history exists INFLUENZA VACCINE (#1) 2024 , 02/27/2021, 02/11/2020, Additional history exists COVID-19 VACCINE ( season) 2025 01/21/2022, 04/19/2021, 07/20/2020, Additional history exists BLOOD PRESSURE 07/06/2025 01/03/2025 HEMOGLOBIN A1C 07/06/2025 01/03/2025, 0207/2024, 12/27/2023, Additional history exists MAMMOGRAM 08/26/2025 08/27/2023, 07/16, 08/07/2021, Additional history exists ZOSTER VACCINES Completed 06/11/2021, 02/19/2021 SMOKING STATUS SCREENING (Once After 26 Yrs) Completed 11/06/2024 HEPATITIS A VACCINES Aged Out No long er eligible based on patient's age to complete this topic HIB VACCINES Aged Out No longer eligi ble based on patient's age to complete this topic MENINGOCOCCAL VACCINES (ACWY) Aged Out No longer eligible based on patient's age to complete this topic MENINGOCOCCAL VACCINES (B) Aged Out N o longer eligible based on patient's age to complete this topic Medical Devices Explanted Type Area Dust Mop Maker Device Identifier Shelf Expiration Date Model / Serial / Lot Iud Uterus Procedures Procedure Name Priority Date/Time Associated Diagnosis Comments POCT HEMOGLOBIN A1C Routine 01/03/2025 8 :24 AM EDT Type 2 diabetes mellitus with hyperglycemia, with long-term current use of insulin Hyperlipidemia, unspecified hyperlipidemia type BI MAMMOGRAM SCREENING WITH TOMOSYNTHESIS WITH CAD (BILATERAL) Routine 08/27/2023 7:34 AM EDT Breast screening COMPREHENSIVE METABOLIC PANEL Routine 07/20/2022 9:14 AM EST Type 2 diabetes mellitus with hyperglycemia, with long-term current use of insulin from Last 3 Months or Most Recently Relevant to Health Maintenance Results * (ABNORMAL) POCT Hemoglobin A1c (01/03/2025 8:24 AM EDT) Hemoglobin A1c 6.0(A) 4.2 - 5.6 % Other 01/03/2025 8:24 AM EDT Gali Lew CNP POINT OF CARE TEST ORDERABLES Final Result * BI MAMMOGRAM SCREENING WITH TOMOSYNTHESIS WITH CAD (BILATERAL) (08/27/2023 7:34 AM EDT) Anatomical Region Laterality Modality Breast Left, Breast Right, Breast Bilateral Bila teral Mammography 08/31/2023 4:23 PM EDT Impressions 08/31/2023 5:54 PM EDT No mammographic evidence of malignancy in either breast. Annual screening mammography is recommended. BI-RADS 2 BENIGN The patient will be notified of the results and recommendations. Narrative 08/31/2023 5:54 PM EDT BI MAMMOGRAM SCREENING WITH TOMOSYNTHESIS WITH CAD (BILATERAL) Additional patient information: Screening. COMPARISON: Comparison is made with relevant prior imaging. Breast composition: There are scattered areas of fibroglandular density. FINDINGS: No abnormal masses, suspicious calcifications, or other significant findings are identified mammographically in either breast. Anterior upper left breast on the MLO view is stable and consistent with superimposed benign fibroglandular tissue. Procedure Note Stephane Kwong MD - 08/31/2023 BI MAMMOGRAM SCREENING WITH TOMOSYNTHESIS WITH CAD (BILATERAL) Additional patient information: Screening. COMPARISON: Comparison is made with relevant prior imaging. Breast composition: There are scattered areas of fibroglandular density. FINDINGS: No abnormal masses, suspicious calcifications, or other significantfindings are identified mammographically in either breast. Anterior upperleft breast on the MLO view is stable and consistent with superimposedbenign fibroglandular tissue. IMPRESSION: No mammographic evidence of malignancy in either breast. Annual screening mammography is recommended. BI-RADS 2 BENIGN The patient will be notified of the results and recommendations. Renae TORRES IMG MG EXAMS Final Result * (ABNORMAL) Comprehensive metabolic panel (07/20/2022 9:14 AM EST) SODIUM 138 133 - 146 mmol/L [facility] POTASSIUM 4.1 3.3 - 5.1 mmol/L [facility] CHLORIDE 104 96 - 108 mmol/L [facility] CO2 25 21 - 35 mmol/L [facility] BUN 13 6 - 19 mg/dL [facility] CREATININE 0.80 0.5 - 1.5 mg/dL [facility] GLUCOSE 250(H) 70 - 99 mg/dL [facility] ALBUMIN 4.1 3.9 - 4.8 g/dL [facility] TOTAL PROTEIN 7.2 6.5 - 8.0 g/dL [facility] CALCIUM 10.0 8.4 - 10.3 mg/dL [facility] ALKALINE PHOSPHATASE 138(H) 39 - 117 U/L [facility] TOTAL BILIRUBIN 0.3 0.0 - 1.2 mg/dL [facility] AST 21 0 - 37 U/L [facility] ALT 24 0 - 40 U/L [facility] GLOBULIN 3.1 1 - 4.8 g/dL [facility] EGFR 87 >59 mL/min/1.7 3m2 [facility] Comment:Estimated glomerular filtration rate calculated using the CKD-EPI refit equation. ANION GAP 13 10 - 20 mmol/L [facility] Blood 07/20/2022 9:14 AM EST 07/20/2022 9:19 AM EST us Gali Lew RN PICU LAB BLOOD ORDERABLES Final Re sult [address] [address] from Last 3 Months or Most Recently Relevant to Health Maintenance Insurance [facility] Use It Better CHOICE [facility] Use It Better CHOICE CHOICE CHOICE CHOICE [facility] CHOICE Advance Directives For more information, please contact: [phone] (9AM - 5PM [facility], Wednesday-Wednesday) Documents on File Type Date Recorded Patient Customer Service Cashier Expl anation Healthcare Proxy 09/19/2020 1:16 PM * Full Code (Latest Code Status on File) Date Activated Date Inactivated Comments 09/11/2020 5:04 PM Question Answer Comments Code Status Confirmed With: Patient Care Teams Health Policy Nurse Relationship Specialty Start Date End Date Renae Mullen PA [address] [place] [address] [email or web address] PCP - General 05/08/20 Shahriar Gonzalez MD Historical LMR Provider 03/03/17 Eileen Santoro MD [address] [place] [address] [email or web address] Infectious Diseases 10/02/20 Additional Source Comments The information contained in this document represents components of the legal health record. It is not the complete legal health record.[facility]
--- OUTSIDE RECORDS SUMMARY | 2025-03-07 09:41 | XMS_ITS | Patient Health Record ---
Author Organization [facility] mila Address [address] [place] [address] Care Team Providers Care Credit Administrator Name Role Phone Ernestine Pace Primary Care Provider Paz Renae Unavailable [phone] Allergies Allergen (clinical drug ingredient) Drug/Non Drug Allergy documented on EMR Reaction Allergy Type Onset Date Status SWORD FISH,ASPARAGUS (uncoded) Unknown Allergy Active ampicillin Ampicillin rash Drug Allergy Activ e atenolol Atenolol anaphylaxis Drug Allergy Activ e Penicillin rash Drug Allergy Active Results Component Value Reference Range Flag Notes HEMOGLOBIN A1C Reviewed date:07/12/2024 04:36:46 PM Interpretation: Performing Lab:[place]OLITO2, [facility] Bere Suarez Notes/Report: Received Date: FASTING:YES FASTING: YES HEMOGLOBIN A1c 6.4 <5.7 % of total Hgb H For someone without known diabetes, a hemoglobin A1c value between 5.7% and 6.4% is consistent with prediabetes and should be confirmed with a follow-up test. For someone with known diabetes, a value <7% indicates that their diabetes is well controlled. A1c targets should be individualized based on duration of diabetes, age, comorbid conditions, and other considerations. This assay result is consistent with an increased risk of diabetes. Currently, no consensus exists regarding use of hemoglobin A1c for diagnosis of diabetes for children. LIPID PANEL Reviewed date:07/12/2024 04:36:40 PM Interpretation: Performing Lab:[facility]OLIT[place]2, [facility] Bere Suarez Notes/Report: Received Date: [id number] FASTING:YES FASTING: YES CHOLESTEROL, TOTAL 154 <200 mg/dL N HDL CHOLESTEROL 50 > OR = 50 mg/dL N TRIGLYCERIDES 105 <150 mg/dL N LDL-CHOLESTEROL 84 N Reference range: <100 Desirable range <100 mg/dL for primary prevention; <70 mg/dL for patients with CHD or diabetic patients with > or = 2 CHD risk factors. LDL-C is now calculated using the Gayla calculation, which is a validated novel method providing better accuracy than the Friedewald equation in the estimation of LDL-C. Asif GRANT et al. KIMBERLY. 2013;310(19): 7064-7330 (http://education.[employer]/faq/FAQ16 4) CHOL/HDLC RATIO 3.1 <5.0 (calc) N NON HDL CHOLESTEROL 104 <130 mg/dL (calc) N For patients with diabetes plus 1 major ASCVD risk factor, treating to a non-HDL-C goal of <100 mg/dL (LDL-C of <70 mg/dL) is considered a therapeutic option. Foot Exam (DM) Reviewed date:03/29/2024 03:33:01 PM Interpretation: Performing Lab: Notes/Report: Foot Exam date pass lesions none monofilament test bilat pass Pedal pulses bilat pulses HEMOGLOBIN A1C Reviewed date:11/01/2024 08:16:35 AM Interpretation: Performing Lab:NL2, [facility]ivo [facility] [address] [place], [place] [address] Bere Suarez Notes/Report: Received Date: [id number] NON-FASTING HEMOGLOBIN A1c 6.0 <5.7 % H For someone without known diabetes, a hemoglobin A1c value between 5.7% and 6.4% is consistent with prediabetes and should be confirmed with a follow-up test. For someone with known diabetes, a value <7% indicates that their diabetes is well controlled. A1c targets should be individualized based on duration of diabetes, age, comorbid conditions, and other considerations. This assay result is consistent with an increased risk of diabetes. Currently, no consensus exists regarding use of hemoglobin A1c for diagnosis of diabetes for children. TSH, 3RD GENERATION W/REFLEX TO FT4 Reviewed date:11/01/2024 08:16:24 AM Interpretation: Performing Lab:HIPOLITO2, [facility] Bere Suarez Notes/Report: Received Date: [id number] NON-FASTING TSH W/REFLEX TO FT4 1.48 0.40-4.50 mIU/L N COMPREHENSIVE METABOLIC [facility] -13224 Reviewed date:11/01/2024 08:16:31 AM Interpretation: Performing Lab:HIPOLITO2, [facility] Bere Suarez Notes/Report: Received Date: [id number] NON-FASTING GLUCOSE 88 65-99 mg/dL N Fasting reference interval UREA NITROGEN (BUN) 16 7-25 mg/dL N CREATININE 0.81 0.50-1.03 mg/dL N EGFR 85 > OR = 60 mL/min/1.73m2 N BUN/CREATININE RATIO SEE NOTE: 6-22 (calc) Not Reported: BUN and Creatinine are within reference range. SODIUM 140 135-146 mmol/L N POTASSIUM 4.2 3.5-5.3 mmol/L N CHLORIDE 107 98-110 mmol/L N CARBON DIOXIDE 24 20-32 mmol/L N CALCIUM 9.3 8.6-10.4 mg/dL N PROTEIN, TOTAL 6.7 6.1-8.1 g/dL N ALBUMIN 4.1 3.6-5.1 g/dL N GLOBULIN 2.6 1.9-3.7 g/dL (calc) N ALBUMIN/GLOBULIN RATIO 1.6 1.0-2.5 (calc) N BILIRUBIN, TOTAL 0.6 0.2-1.2 mg/dL N ALKALINE PHOSPHATASE 99 37-153 U/L N AST 16 10-35 U/L N ALT 22 6-29 U/L N URINARY MICROALBUMIN Reviewed date:07/12/2024 04:36:32 PM Interpretation: Performing Lab:HIPOLITOCardback, [facility] Bere Suarez Notes/Report: Received Date: [id number] FASTING:YES FASTING: YES CREATININE, RANDOM URINE 33 20-275 mg/dL N ALBUMIN, URINE <0.2 See Note: mg/dL N Reference Range: Reference Range Not established ALBUMIN/CREATININE RATIO, RANDOM URINE NOTE <30 mg/g creat N NOTE: The urine albumin value is less than 0.2 mg/dL therefore we are unable to calculate excretion and/or creatinine ratio. The ADA defines abnormalities in albumin excretion as follows: Albuminuria Category Result (mg/g creatinine) Normal to Mildly increased <30 Moderately increased 30-299 Severely increased > OR = 300 The ADA recommends that at least two of three specimens collected within a 3-6 month period be abnormal before considering a patient to be within a diagnostic category. CBC WITH DIFF Reviewed date:07/12/2024 04:37:33 PM Interpretation: Performing Lab:NL2, [facility] [address] [place], [place] [address] Bere Suarez Notes/Report: Received Date: FASTING:YES FASTING: YES WHITE BLOOD CELL COUNT 7.0 3.8-10.8 Thousand/uL N RED BLOOD CELL COUNT 4.54 3.80-5.10 Million/uL N HEMOGLOBIN 13.4 11.7-15.5 g/dL N HEMATOCRIT 41.0 35.0-45.0 % N MCV 90.3 80.0-100.0 fL N MCH 29.5 27.0-33.0 pg N MCHC 32.7 32.0-36.0 g/dL N For adults, a slight decrease in the calculated MCHC value (in the range of 30 to 32 g/dL) is most likely not clinically significant; however, it should be interpreted with caution in correlation with other red cell parameters and the patient's clinical condition. RDW 12.4 11.0-15.0 % N PLATELET COUNT 320 140-400 Thousand/uL N MPV 10.2 7.5-12.5 fL N ABSOLUTE NEUTROPHILS 3612 9034-9774 cells/uL N ABSOLUTE LYMPHOCYTES 2751 850-3900 cells/uL N ABSOLUTE MONOCYTES 392 200-950 cells/uL N ABSOLUTE EOSINOPHILS 182 15-500 cells/uL N ABSOLUTE BASOPHILS 63 0-200 cells/uL N NEUTROPHILS 51.6 N LYMPHOCYTES 39.3 N MONOCYTES 5.6 N EOSINOPHILS 2.6 N BASOPHILS 0.9 N CRP Reviewed date:07/12/2024 04:36:49 PM Interpretation: Performing Lab:NL2, [facility] [id number] [facility] Bere Suarez Notes/Report: Received Date: FASTING:YES FASTING: YES C-REACTIVE PROTEIN <3.0 <8.0 mg/L N Reason For Referral No Information Medications Medication SIG (Take, Route, Frequency, Duration) Notes Start Date End Date Status Atorvastatin Calcium 80 MG Tablet 1 tab(s) orally once a day; Duration: 90 days Active Omeprazole 20 MG Capsule Delayed Release 1 cap(s) orally once a day; Duration: 90 days Active Mounjaro 12.5 MG/0.5 ML SOLUTION DIRECTED SUBCUTANEOUSLY ONCE A WEEK Active Topiramate ER 100 MG Capsule ER 24 Hour Sprinkle 1 capsule Orally Once a day Active Multi Vitamin TAB(S) BY MOUTH QD Active Lantus 100 UNIT/ML Solution 30 units Subcutaneous once a day Active ONE TOUCH VERIO TEST STRIPS DIRECTED TID; Duration: 90 02/26/2021 Active Fish Oil 1 QD Active Vitamin B-12 1000 MCG Tablet 1 tablet Orally Once a day Active Magnesium TABLET 1 PO QD Act shanti Loratadine-D 24HR 10-240 MG Tablet Extended Release 24 Hour 1 tab(s) orally once a day Active Vitamin D 2000 IU 1 TAB PO QD Active Lexapro 20 MG Tablet 1 tab(s) orally once a day; Duration: 90 days Active SYRINGE 1CC WITH LUER LOCK 30 U QD QHS; Duration: 100 DAYS BD U-100 Insulin 0.5 mil length 12.7 mm 30g - pls disregard 1cc - with Luer Lock (forced by electronic interface) *Please review for potential replacement for e-prescription and drug interaction check* Active CPAP Active Lisinopril 10 MG Tablet 1 tab(s) orally once a day; Duration: 90 days Active Coenzyme Q10 100 MG Capsule 1 cap(s) orally once a day Active OneTouch Verio - Strip daily; Duration: 100 days Active SYRINGE 0.5CC 29G /2 , 100 Active LORazepam 0.5 MG Tablet 1 tab(s) orally once daily as needed use sparingly; Duration: 30 days 08/09/2023 Active VERIO REFLECT ONE TOUCH LANCETS DIRECTED 3X DAY; Duration: 90 DAYS 09/19/2020 Active Immunizations Vaccine Route Administration Date Status Comme nts TDAP >7 PURCHASED (ADACEL) IM Intramuscular 11/11/2022 Adm inistered SHINGRIX PURCHASED IM Intramuscular 02/19/2021 Administere d SHINGRIX PURCHASED IM Intramuscular 06/11/2021 Administere d PREVNAR 20 PURCHASED IM Intramuscular 08/01/2024 Administe red Fluvirin Vaccine; History Unknown 03/24/2024 Administer ed Flu Vaccine; History Unknown 03/04/2023 Administered COVID-19 Vaccine (Pfizer), History Unknown 06/29/2020 Administered COVID-19 Vaccine (Pfizer), History Unknown 07/20/2020 Administered Covid Vac Bivalent Moderna,History Unknown 01/21/2022 Administered COVID HISTORY VACC 12+ PFIZER COMIRNATY Unknown 03/04/2023 Administered COVID HISTORY VACC 12+ PFIZER COMIRNATY Unknown 03/24/2024 Administered Social History Tobacco Use: Social History Observation Description Date Details (start date - stop date) Never Smoker NA - NA Social History Social History Social Info Question Answer Notes Smoking Smart Form: Are you a: nonsmoker Additional Details Category Social Info Options Details Social History Occupation: works at [employer], external relations and events Alcohol: Rare Alcohol Drug use: none Exercise: walking Marital Status: Children: daughter Beti ('01) lives in [facility] Section Notes: Nutrition: omnivore Nutrition: omnivore Nutrition: omnivore Nutrition: omnivore Nutrition: omnivore Nutrition: omnivore Nutrition: omnivore Nutrition: omnivore Nutrition: omnivore Nutrition: omnivore Nutrition: omnivore Nutrition: omnivore Nutrition: omnivore Nutrition: omnivore Nutrition: omnivore Nutrition: omnivore Nutrition: omnivore Nutrition: omnivore Nutrition: omnivore Nutrition: omnivore Nutrition: omnivore Nutrition: omnivore Nutrition: omnivore Nutrition: omnivore Nutrition: omnivore Nutrition: omnivore Nutrition: omnivore Nutrition: omnivore Nutrition: omnivore Nutrition: omnivore Nutrition: omnivore Nutrition: omnivore Nutrition: omnivore Nutrition: omnivore Nutrition: omnivore Nutrition: omnivore Problems Problem Type SNOMED Code ICD Code Onset Dates Problem Status W/U Status Risk Notes Problem Hyperlipidemia (34811157) Hyperlipidemia, unspecified (E78.5) Active confirmed Problem Essential hypertension (89824147) Hypertension, essential (I10) Active confirmed Problem Sleep disorder (54110109) Sleep disorder, unspecified (G47.9) Active confirmed Problem 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) DM II with unspecified complications (E11.8) Active confirmed Problem Migraine (25301546) Migraine NOS (G43.809) Active confirmed Problem Obstructive sleep apnea syndrome (22122738) TALIB (G47.33) Active confirmed Problem 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, oral cavity, and pharynx (Z85.819) Active confirmed Problem Thyroid nodule (262571227) THYROID NODULE (E04.1) Active confirmed Problem Cervicalgia (94445078) Cervicalgia (M54.2) Active confirmed Problem Fatty liver (583804120) Fatty Liver (K76.0) Active confirmed Vital Signs Temperature 97.0 degrees Fahrenheit 10/31/2024 Oximetry 96 10/31/2024 Blood pressure diastolic 66 mm Hg 10/31/2024 Height 64.5 in 03/29/2024 Blood pressure systolic 104 mm Hg 10/31/2024 Weight 229.8 lbs 10/31/2024 BMI 38.39 kg/m2 03/29/2024 Encounters Encounter Location Date Provider Diagnosis [address] [address] 03/29/2024 Renae Paz Adult physical NATE L Z00.00 ; DM II with unspecified complications E11.8 ; Hyperlipidemia, unspecified E78.5 ; Fatty Liver K76.0 and TALIB G47.[address] [address] 07/11/2024 Renae Paz Headache, unspecifie d R51.9 ; Lymphadenopathy localized R59.0 and Cervicalgia M54.[address] [address] 08/01/2024 Renae Paz Headache, unspecifie d R51.9 ; DM II with unspecified complications E11.8 ; Sleep disorder, unspecified G47.9 ; TALIB G47.33 and Encounter for immunization Z23 [address] [address] 10/31/2024 Renae Mullen DM II with unspecifi ed complications E11.8 ; Hyperlipidemia, unspecified E78.5 ; Hypertension, essential I10 and THYROID NODULE E04.[address] [address] 07/11/2024 Renae Mullen Headache, unspecifie d R51.9 ; Lymphadenopathy localized R59.0 ; Cervicalgia M54.2 and Migraine NOS G43.[address] [address] 08/02/2024 Renae Mullen THYROID NODULE E04.[address] [address] 07/20/2024 Renae Mullen Assessments Encounter Date Diagnosis (ICD Code) Assessment Notes Treatment Notes Treatment Clinical Notes Section Notes 03/29/2024 Adult physical NORMAL (ICD-10 - Z00.00) Pap, mammo, colonoscopy UTD. Nutrition/exercis e. Check labs 07/11/2024 Lymphadenopathy localized (ICD-10 - R59.0) Check labs. 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 07/11/2024 Headache, unspecified (ICD-10 - R51.9) See HPI. Concern given change in MORRISON pattern, she also has h/o nasopharyngeal mass. Will get MRIs (brain and face) to further eval. Counseled on seeking emergent care if worsening sx develop in interim. 08/01/2024 DM II with unspecified complications (ICD-10 - E11.8) Reviewed recent labs; followed by Dr. Shah's office as well, lantus just decreased. 08/01/2024 Headache, unspecified (ICD-10 - R51.9) Pending MRI results; could be related to lantus/diabetes, lantus dose recently decreased and MORRISON improved slightly. Seeing her neurologist in next week or two. 10/31/2024 DM II with unspecified complications (ICD-10 - E11.8) Check labs. Continue same med regimen- followed by [facility] center [facility]. 07/11/2024 Headache, unspecified (ICD-10 - R51.9) 08/02/2024 THYROID NODULE (ICD-10 - E04.1) 07/11/2024 Lymphadenopathy localized (ICD-10 - R59.0) 07/11/2024 Cervicalgia (ICD-10 - M54.2) 10/31/2024 Hyperlipidemia, unspecified (ICD-10 - E78.5) 08/01/2024 Sleep disorder, unspecified (ICD-10 - G47.9) Discussed sleep hygiene and med options. 07/11/2024 Cervicalgia (ICD-10 - M54.2) She does have some muscle tightness and tenderness upper trapezius muscles- will trial muscle relaxer. Counseled on proper use and possible side-effects. 03/29/2024 DM II with unspecified complications (ICD-10 - E11.8) Check labs. Has lost about 30-35 in past year on Mounjaro, tolerating well. 03/29/2024 Hyperlipidemia, unspecified (ICD-10 - E78.5) 10/31/2024 Hypertension, essential (ICD-10 - I10) 08/01/2024 TALIB (ICD-10 - G47.33) On CPAP 07/11/2024 Migraine NOS (ICD-10 - G43.809) 10/31/2024 THYROID NODULE (ICD-10 - E04.1) Has upcoming US with ENT specialist in [place] 03/29/2024 Fatty Liver (ICD-10 - K76.0) Suspect improvement with Mounjaro 08/01/2024 Encounter for immunization (ICD-10 - Z23) 03/29/2024 TALIB (ICD-10 - G47.33) Doing well on CPAP, recently recalibrated 03/29/2024 Other Health maintenance flow sheet reveiwed and updated 10/31/2024 Other Rec Elizabeth Winn for heart math given reported heightened anxiety and autonomic response Plan Of Treatment Pending Test Test Name Order Date X ray : Hip, left 03/19/2022 X ray : Hip, right 03/19/2022 Echocardiogram 10/17/2020 Colonoscopy 05/22/2021 ekg 04/17/2020 ekg 10/16/2020 ekg 04/17/2020 holter monitor (24hrs) 10/17/2020 COMPLETE BLOOD COUNT 06/07/2023 Foot Exam (DM) 04/20/2023 hemoglobin A1C 04/20/2023 TSH WITH REFLEX TO FT4 10/31/2024 CK(CREATINE KINASE), w/ Reflex to CKMB C onfirmation 03/19/2022 MAGNESIUM 10/16/2020 HEMOGLOBIN A1C 08/05/2020 HEMOGLOBIN A1C 09/19/2020 HEMOGLOBIN A1C 03/19/2022 HEMOGLOBIN A1C 10/08/2020 HEMOGLOBIN A1C 10/30/2021 HEMOGLOBIN A1C 02/19/2021 BASIC METABOLIC PANEL 10/16/2020 COMPREHENSIVE METABOLIC PANL 11/28/2020 COMPREHENSIVE METABOLIC PANL 09/19/2020 COMPREHENSIVE METABOLIC PANL 08/05/2020 COMPREHENSIVE METABOLIC PANL 10/30/2021 LIPID PANEL 09/29/2021 LIPID PANEL 10/08/2020 LIPID PANEL 09/19/2020 LIPID PANEL 10/30/2021 HEPATIC FUNCTION PANEL 09/29/2021 TSH WITH REFLEX TO T4 10/30/2021 MICROALBUMIN 05/21/2021 MICROALBUMIN 04/20/2023 SILVANO (ANTI-NUCLEAR ANTIBODY SCREEN) USE THIS ONE 03/19/2022 CRP 03/19/2022 stool: C.DIFFICILE TOXIN 10/08/2020 US RUQ 10/01/2021 CBC 03/29/2024 COMP MET PANEL 03/29/2024 Hemoglobin A1c 03/29/2024 LIPID PANEL 03/29/2024 MICROALBUMIN, URINE 03/29/2024 MRI BRAIN WITH AND WITHOUT CONTRAST 06/18 MRI FACE WITH AND WITHOUT CONTRAST 07/11 US THYROID GLAND 08/02/2024 Ultrasound : Neck, soft tissue Future Test Test Name Order Date HEMOGLOBIN A1C 05/22/2021 COMPREHENSIVE METABOLIC PANL 05/22/2021 LIPID PANEL 05/22/2021 TSH WITH REFLEX TO T4 05/22/2021 MICROALBUMIN 05/22/2021 CBC 05/22/2021 Next Appt Details Provider Name:Renae He Paz, 04/05/2025 08:30:00 AM, [address] [place], [address], Insurance Providers Payer Name Payer Address Payer Phone Subscriber Number Group Number Insured Name Patient Relationship to Insured Coverage Start Date Coverage End Date [facility] [address] [place] [phone] [id number] CAMILA HERNANDEZ Self - patient is the insured Medical (General) History Medical History History ICD Code GERD Migraines, Dr. Berg Hyperlipidemia Diabetes type 2 Colonoscopy normal age 47ish, due in 10 years, Dr. Claros COVID vaccine, Lovely, july 2020 ENT mass/infection, Dr. Jamil at [facility] (Spri ng 2020) TAILB Surgical History Surgery Date(Month/Year) Hospitalization History Reason Date(Month/Year) [facility]- severe headache and nasal mass 09/11/20 nasopharyngeal mass- [facility] -[facility] 05/2000
--- OUTSIDE RECORDS SUMMARY | 2025-03-07 09:42 | XMS_ITS | Encounter Summary ---
Author Organization [facility] Address [address] [facility] [address] [place] [address] Phone Care Team Providers Care Material Mover Name Role Phone Carla Alvarez Ying KITCHEN PORTER Unavailable [phone] Chandrika Vidal KITCHEN PORTER Unavailable [phone] Shahriar Gonzalez MD Unavailable Unava Vika Sheehan RDCS Unavailable [email or web address] Renae Mullen Primary Care Provider [phone] Eileen Santoro MD Unavailable [phone] Encounter Details Date Type Department Care Team (Late st Contact Info) Description 04/17/2021 Procedure Pass [facility] - MRI, [address] [address] Social History Tobacco Use Types Packs/Day Years [...] 07/04/2025 8:00 AM EST Office Visit [facility] [address] [place] [address] [place] [address] Gali Lew, VALUE STREAM COACH [address] [facility], 1st [place] [address] 08/06/2025 9:30 AM EDT Appointment [facility] - Ultrasound, Main [address] [address] Pito Jamil MD, FACS [address] [place] [address] [email or web address] 08/06/2025 10:30 AM EDT Office Visit [facility] [address] [place] [address] Pito Jamil MD, FACS [address] [place] [address] [email or web address] documented as of this encounter Visit Diagnoses Not on filedocumented in this encounter Care Teams Material Mover Relationship Specialty Start Date End Date Renae Mullen PA [address] [place] [address] [email or web address] PCP - General 05/08/20 Carla Alvarez KITCHEN PORTER [address] [place] [id number] Historical LMR Provider 03/03/17 2 Chandrika Vidal NP [address] [place] [address] Historical LMR Provider 03/03/17 2 Shahriar Gonzalez MD Historical LMR Provider 03/03/17 Vika Mckinney, [email or web address] Care [email or web address] Historical LMR Provider 03/03/17 05/24/21 Eileen Santoro MD [address] [place] [address] [email or web address] Infectious Diseases 10/02/20 documented as of this encounter Additional Source Comments The information contained in this document represents components of the legal health record. It is not the complete legal health record.[facility]
--- OUTSIDE RECORDS SUMMARY | 2025-03-07 09:42 | XMS_ITS | Encounter Summary ---
Author Organization [facility] Address [address] [facility] [address] [place] [address] Phone Care Team Providers Care Sandblast Carver Name Role Phone Shahriar Gonzalez MD Unavailable Unava ilRenae Blackburn Primary Care Provider [phone] Eileen Santoro MD Unavailable [phone] Encounter Details Date Type Department Care Team (Late st Contact Info) Description 10/01/2021 Transcribe Orders Virtual Department 30 [place] [address] Javier Telles PA [address] [place] [phone] [email or web address] Abnormal results of liver function studies (Primary Dx) Social History Tobacco Use Types [...] Description 07/04/2025 8:00 AM EST Office Visit [facility] [address] [place] [address] [place] [address] Gali Lew, RETAIL WIRELESS ASSOCIATE 22 [facility], 1st [place] [address] [email or web address] 08/06/2025 9:30 AM EDT Appointment [facility] Imaging - Ultrasound, Main [address] [address] Pito Jamil MD, FACS [address] [place] [address] [email or web address]@[email or web address] 08/06/2025 10:30 AM EDT Office Visit [facility] [address] [place] [address] Pito Jamil MD, FACS [address] [place] [address] [email or web address] documented as of this encounter Results * US ABDOMEN LIMITED RIGHT UPPER QUADRANT (10/24/2021 8:38 AM EDT) Anatomical Region Laterality Modality Abdomen Ultrasound 10/24/2021 10:0 8 AM EDT Impressions 10/24/2021 10:10 AM EDT Findings indicative of hepatic steatosis. Narrative 10/24/2021 10:10 AM EDT COMPARISON: None. LIMITED ABDOMEN ULTRASOUND FINDINGS: Liver: Diffusely echogenic, heterogeneous and sound attenuating. No focal lesions. Gallbladder: Normal. Common bile duct: Normal-6 cm. Pancreas: Imaged pancreas is normal. The pancreatic tail is obscured by bowel gas. Right Kidney: No hydronephrosis. Proximal abdominal aorta/IVC/Main Portal Vein: Unremarkable. Procedure Note Abelardo Farrar MD - 10/24/2021 COMPARISON: None. LIMITED ABDOMEN ULTRASOUND FINDINGS: Liver: Diffusely echogenic, heterogeneous and sound attenuating. No focallesions. Gallbladder: Normal. Common bile duct: Normal-6 cm. Pancreas: Imaged pancreas is normal. The pancreatic tail is obscured bybowel gas. Right Kidney: No hydronephrosis. Proximal abdominal aorta/IVC/Main Portal Vein: Unremarkable. IMPRESSION: Findings indicative of hepatic steatosis. us Javier TORRES IMG US ABDOMEN Final Result documented in this encounter Visit Diagnoses Diagnosis Abnormal results of liver function studies- Primary Nonspecific abnormal results of liver function study Abnormal results of liver function studies Nonspecific abnormal results of liver function study documented in this encounter Care Teams Sandblast Carver Relationship Specialty Start Date End Date Renae Mullen PA [address] [place] [address] [email or web address] PCP - General 05/08/20 Shahriar Gonzalez MD Historical LMR Provider 03/03/17 Eileen Santoro MD [address] [place] [address] [email or web address] Infectious Diseases 10/02/20 documented as of this encounter Additional Source Comments The information contained in this document represents components of the legal health record. It is not the complete legal health record.[facility]
--- OUTSIDE RECORDS SUMMARY | 2025-03-07 09:42 | XMS_ITS | Encounter Summary ---
Author Organization [facility] Address [address] [facility] [address] [place] [address] Phone Care Team Providers Care Silo Painter Name Role Phone Shahriar Gonzalez MD Unavailable Unava ilable Renae Mullen Primary Care Provider [phone] Eileen Santoro MD Unavailable [phone] Encounter Details Date Type Department Care Team (Late st Contact Info) Description 06/01/2023 Transcribe Orders Virtual Department 30 [place], [place] [phone] Renae Mullen PA [address] [place] [address] [email or web address] Breast screening (Primary Dx) Social History Tobacco Use Types Packs/Day Years Used Date Smoking Tobacco: Never Passive Smoke Exposure: Never Smokeless Tobacco: Never Alcohol Use Standard [...] Description 07/04/2025 8:00 AM EST Office Visit [facility] [address] [place] [address] [place] [address] Gali Lew, ORTHOPEDIC MECHANIC 22 [facility], 1st [place] [address] 08/06/2025 9:30 AM EDT Appointment [facility] Imaging - Ultrasound, [address] [address] Pito Jamil MD, FACS [address] [place] [address] [email or web address] 08/06/2025 10:30 AM EDT Office Visit [facility] Head [facility] Cancer Division [address] [place] [address] Pito Jamil MD, FACS [address] [place] [address] [email or web address] documented as of this encounter Results * [...] of the results and recommendations. Renae TORRES IM MG EXAMS Final Result documented in this encounter Visit Diagnoses Diagnosis Breast screening- Primary Breast screening, unspecified Breast screening Breast screening, unspecified documented in this encounter Care Teams Silo Painter Relationship Specialty Start Date End Date Renae Mullen PA [address] [place] [address] [email or web address] PCP - General 05/08/20 Shahriar Gonzalez MD Historical LMR Provider 03/03/17 Eileen Santoro MD [address] [place] [address] [email or web address] Infectious Diseases 10/02/20 documented as of this encounter Additional Source Comments The information contained in this document represents components of the legal health record. It is not the complete legal health record.[facility]
--- OUTSIDE RECORDS SUMMARY | 2025-03-07 09:42 | XMS_ITS | Encounter Summary ---
Author Organization [facility] Address [address] [facility] [address] [place] [address] Phone Care Team Providers Care Passenger Agent Name Role Phone Shahriar Gonzalez MD Unavailable Unava ilRenae Blackburn Primary Care Provider [phone] Eileen Santoro MD Unavailable [phone] Encounter Details Date Type Department Care Team (Late st Contact Info) Description 06/01/2023 Procedure Pass [facility] - [address] [place] [address] Social History Tobacco Use Types Packs/Day Years Used Date Smoking Tobacco: Never Passive Smoke Exposure: Never Smokeless Tobacco: Never Alcohol Use Standard Drinks/Week Comments Not Currently [...] 07/04/2025 8:00 AM EST Office Visit [facility] [address] [place] [address] [place], [place] [address] KevinGali degroot, EMISSIONS TECHNICIAN 22 [facility], 1st [place] [address] 08/06/2025 9:30 AM EDT Appointment [facility] Imaging - Ultrasound, [address] [address] Pito Jamil MD, FACS [address] [place] [address] Samara@[email or web address] 08/06/2025 10:30 AM EDT Office Visit [facility] [address] [place] [address] Pito Jamil MD, FACS [address] [place] [address] [email or web address] documented as of this encounter Visit Diagnoses Not on filedocumented in this encounter Care Teams Passenger Agent Relationship Specialty Start Date End Date Renae Mullen PA [address] [place] [address] [email or web address] PCP - General 05/08/20 Shahriar Gonzalez MD Historical LMR Provider 03/03/17 Eileen Santoro MD [address] [place] [address] [email or web address] Infectious Diseases 5/19/21 documented as of this encounter Additional Source Comments The information contained in this document represents components of the legal health record. It is not the complete legal health record.[facility]
--- OUTSIDE RECORDS SUMMARY | 2025-03-07 09:42 | XMS_ITS | Encounter Summary ---
Author Organization [facility] Address [address] [facility] [address] [place] [address] Phone Care Team Providers Care Medical Resident Name Role Phone Shahriar Gonzalez MD Unavailable Unava ilRenae Blackburn Primary Care Provider [phone] Eileen Santoro MD Unavailable Encounter Details Date Type Department Care Team (Late st Contact Info) Description 07/10/2024 Procedure Pass [facility] - MRI, [facility] [address] [place] [address] Social History Tobacco Use Types Packs/Day Years [...] 07/04/2025 8:00 AM EST Office Visit [facility] [address] [place] [address] [place], [place] [address] Kevin Gali, EARLY CHILDHOOD EDUCATION COORDINATOR [address] [facility], 1st [place] [address] 08/06/2025 9:30 AM EDT Appointment [facility] Imaging - Ultrasound, [address] [address] Pito Jamil MD, FACS [address] [place] [address] [email or web address] 08/06/2025 10:30 AM EDT Office Visit [facility] [address] [place] [address] Pito Jamil MD, FACS [address] [place] [address] Samara@[email or web address] documented as of this encounter Visit Diagnoses Not on filedocumented in this encounter Care Teams Medical Resident Relationship Specialty Start Date End Date Renae Mullen PA [address] [place] [address] [email or web address] PCP - General 05/08/20 Shahriar Gonzalez MD Historical LMR Provider 03/03/17 Eileen Santoro MD [address] [place] [address] [email or web address] Infectious Diseases 10/02/20 documented as of this encounter Additional Source Comments The information contained in this document represents components of the legal health record. It is not the complete legal health record.[facility]
--- OUTSIDE RECORDS SUMMARY | 2025-03-07 09:42 | XMS_ITS | Encounter Summary ---
Author Organization [facility] Address [address] [facility] [address] [place] [address] Phone Care Team Providers Care Civil Defense Director Name Role Phone Carla Alvarez Ying VASCULAR SPECIALISTS Unavailable [phone] Chandrika Vidal [facility] Unavailable [phone] Shahriar Gonzalez MD Unavailable Unava Vika Sheehan RDCS Unavailable [email or web address] Renae Mullen Primary Care Provider [phone] Eileen Santoro MD Unavailable [phone] Encounter Details Date Type Department Care Team (Late st Contact Info) Description 04/17/2021 Procedure Pass [facility] - MRI, [address] [address] Social History Tobacco Use Types Packs/Day Years [...] 07/04/2025 8:00 AM EST Office Visit [facility] [address] [place] [address] [place] [address] Gali Lew, PIERCE AND SHAVE PRESS OPERATOR [address] [facility], 1st [place] [address] 08/06/2025 9:30 AM EDT Appointment [facility] - Ultrasound, Main [address] [address] Pito Jamil MD, FACS [address] [place] [address] Samara@[email or web address] 08/06/2025 10:30 AM EDT Office Visit [facility] [address] [place] [address] Pito Jamil MD, FACS [address] [place] [address] Samara@[email or web address] documented as of this encounter Visit Diagnoses Not on filedocumented in this encounter Care Teams Civil Defense Director Relationship Specialty Start Date End Date Renae Mullen PA [address] [place] [address] [email or web address] PCP - General 05/08/20 Carla Alvarez [facility] [address] [place] [address] Historical LMR Provider 03/03/17 2 Chandrika Vidal NP [address] [place] [address] Historical LMR Provider 03/03/17 2 Shahriar Gonzalez MD Historical LMR Provider 03/03/17 Vika Mckinney, RDSaint [email or web address] Historical LMR Provider 03/03/17 05/24/21 Eileen Santoro MD [address] [place] [address] [email or web address] Infectious Diseases 10/02/20 documented as of this encounter Additional Source Comments The information contained in this document represents components of the legal health record. It is not the complete legal health record.[facility]
--- OUTSIDE RECORDS SUMMARY | 2025-03-07 09:43 | XMS_ITS | Encounter Summary ---
Author Organization [facility] Address [address] [facility] [address] [place] [address] Phone Care Team Providers Care Ordained Minister Name Role Phone Carla Alvarez Ying BUSINESS EXCELLENCE LEADER Unavailable [phone] Chandrika Vidal BUSINESS EXCELLENCE LEADER Unavailable [phone] Shahriar Gonzalez MD Unavailable Unava Vika Sheehan RDCS Unavailable [email or web address] Renae Mullen Primary Care Provider [phone] Eileen Santoro MD Unavailable [phone] Encounter Details Date Type Department Care Team (Late st Contact Info) Description 09/08/2020 Procedure Pass [facility], Ct Scan - [address] [address] Social History Tobacco Use Types Packs/Day Years [...] Date of Assessment Author No Risk Indicated 09/11/2020 6:00 PM EDT Jessa Montaño RN * [place] Suicide Severity Rating Scale (Screener/Recent Self-Report) Question Answer Date of Assessment Author 1. Wish to be (Past 1 Month) No 021 6:00 PM EDT Jessa Montaño, JAUN 2. Non-Specific Active Suici carey Thoughts (Past 1 Month) No 09/11/2020 6:00 PM EDT Rita Montaño, RN 6. Suicidal Behavior (Lifetime) No 6:00 PM EDT Jessa Montaño, JAUN documented as of this encounter Plan of Treatment Upcoming Encounters Date Type Department Care Team (Late st Contact Info) Description 07/04/2025 8:00 AM EST Office Visit [facility] [address] [place] [address] [place] [address] Gali Lew, LORENA [address] [address] 08/06/2025 9:30 AM EDT Appointment [facility] Imaging - Ultrasound, [address] [address] Pito Jamil MD, FACS [address] [place] [address] Samara@[email or web address] 08/06/2025 10:30 AM EDT Office Visit [facility] Cancer Division [address] [place] [address] Pito Jamil MD, FACS [address] [place] [address] [email or web address] documented as of this encounter Visit Diagnoses Not on filedocumented in this encounter Care Teams Ordained Minister Relationship Specialty Start Date End Date Renae Mullen PA [address] [place] [address] [email or web address] PCP - General 05/08/20 Carla Alvarez, BUSINESS EXCELLENCE LEADER [address] [place] [address] Historical LMR Provider 03/03/17 2 Chandrika Vidal NP [address] [place] [address] Historical LMR Provider 03/03/17 2 Shahriar Gonzalez MD Historical LMR Provider 03/03/17 Vika Mckinney, RDCS [email or web address] Historical LMR Provider 03/03/17 05/24/21 Eileen Santoro MD [address] [place] [address] [email or web address] Infectious Diseases 10/02/20 documented as of this encounter Additional Source Comments The information contained in this document represents components of the legal health record. It is not the complete legal health record.[facility]
--- OUTSIDE RECORDS SUMMARY | 2025-03-07 09:43 | XMS_ITS | Encounter Summary ---
Author Organization [facility] Address [address] [facility] [address] [place] [address] Phone Care Team Providers Care Sqe Name Role Phone Shahriar Gonzalez MD Unavailable Unava ilRenae Blackburn Primary Care Provider [phone] Eileen Santoro MD Unavailable [phone] Encounter Details Date Type Department Care Team (Late st Contact Info) Description 05/04/2022 Procedure Pass [facility] - MRI, [facility] [address] [place] [address] Social History Tobacco Use Types Packs/Day Years [...] Description 07/04/2025 8:00 AM EST Office Visit [facility] [address] [place] [address] [place] [address] Gali Lew, CORE DRILLER 22 [facility], 1st [place] [address] [email or web address] 08/06/2025 9:30 AM EDT Appointment [facility] - Ultrasound, Main [place] [address] [place] [address] Pito Jamil MD, FACS [address] [place] [address] Samara@[facility] 08/06/2025 10:30 AM EDT Office Visit [facility] [address] [place] [address] Pito Jamil MD, FACS [address] [place] [address] Samara@[facility] documented as of this encounter Visit Diagnoses Not on filedocumented in this encounter Care Teams Sqe Relationship Specialty Start Date End Date Renae Mullen PA [address] [place] [address] [email or web address] PCP - General 05/08/20 Shahriar Gonzalez MD Historical LMR Provider 03/03/17 Eileen Santoro MD [address] [place] [address] [address] [place] [address] [email or web address] Infectious Diseases 10/02/20 documented as of this encounter Additional Source Comments The information contained in this document represents components of the legal health record. It is not the complete legal health record.[facility]
--- OUTSIDE RECORDS SUMMARY | 2025-03-07 09:43 | XMS_ITS | Encounter Summary ---
Author Organization [facility] Address [address] [facility] [address] [place] [address] Phone Care Team Providers Care Parachute Folder Name Role Phone Kim Carla He EDGE BURNISHER Unavailable Chandrika Vidal EDGE BURNISHER Unavailable [phone] Shahriar Gonzalez MD Unavailable Unava Vika Sheehan RDCS Unavailable [email or web address] Renae Mullen Primary Care Provider [phone] Eileen Santoro MD Unavailable [phone] Encounter Details Date Type Department Care Team (Late st Contact Info) Description 10/18/2020 Transcribe Orders Virtual Department 30 [place], [place] [phone] Renae Mullen PA 6 [place] [address] [email or web address] Palpitations (Primary Dx) Social History Tobacco Use Types [...] EST Office Visit [facility] [address] [place] [address] [place] [address] Gali Lew, CURATORIAL SPECIALIST 22 [facility], 1st [place] [address] 08/06/2025 9:30 AM EDT Appointment [facility] - Ultrasound, Main [address] [address] Pito Jamil MD, FACS [address] [place] [address] Samara@[facility] 08/06/2025 10:30 AM EDT Office Visit [facility] [address] [place] [address] Pito Jamil MD, FACS [address] [place] [address] Samara@[facility] documented as of this encounter Visit Diagnoses Diagnosis Palpitations- Primary documented in this encounter Care Teams Parachute Folder Relationship Specialty Start Date End Date Renae Mullen PA [address] [place] [address] [email or web address] PCP - General 05/08/20 Carla Alvarez NP [address] [place] [address] Historical LMR Provider 03/03/1705/24/2 2 Chandrika Vidal NP [address] [place] [address] Historical LMR Provider 03/03/17 2 Shahriar Gonzalez MD Historical LMR Provider 03/03/17 Vika Mckinney RDCS [email or web address] Historical LMR Provider 03/03/17 05/24/21 Eileen Santoro MD [address] [place] [address] [email or web address] Infectious Diseases 10/02/20 documented as of this encounter Additional Source Comments The information contained in this document represents components of the legal health record. It is not the complete legal health record.[facility]
--- OUTSIDE RECORDS SUMMARY | 2025-03-07 09:43 | XMS_ITS | Encounter Summary ---
Author Organization [facility] Address [address] [facility] [address] [place] [address] Phone Care Team Providers Care Drafting Technician Name Role Phone Carla Alvarez Ying HOUSE DECORATOR Unavailable Chandrika Vidal HOUSE DECORATOR Unavailable [phone] Shahriar Gonzalez MD Unavailable Unava Vika Sheehan RDCS Unavailable [email or web address] Renae Mullen Primary Care Provider [phone] Eileen Santoro MD Unavailable [phone] Encounter Details Date Type Department Care Team (Late st Contact Info) Description 09/23/2020 Procedure Pass [facility] - MRI, [address] [address] Social History Tobacco Use Types Packs/Day Years [...] AM EDT documented as of this encounter Last Filed Vital Signs Vital Sign Reading Time Taken Comments Blood Pressure - - Pulse - - Temperature - - Respiratory Rate - - Oxygen Saturation - - Inhaled Oxygen Concentration - - Weight 113.4 kg (250 lb) 09/25/2020 9:29 AM EDT Height 165.1 cm (5' 5 ) 09/25/2020 9:29 AM EDT Body Mass Index 41.6 09/25/2020 9:29 AM EDT documented in this encounter Plan of Treatment Upcoming Encounters Date Type Department Care Team (Late st Contact Info) Description 07/04/2025 8:00 AM EST Office Visit [facility] [address] [place] [address] [place] [address] Gali Lew, FINGER WAVER 22 [facility], 1st [place] [address] 08/06/2025 9:30 AM EDT Appointment [facility] - Ultrasound, [address] [address] Pito Jamil MD, FACS [address] [place] [address] [email or web address] 08/06/2025 10:30 AM EDT Office Visit [facility] [address] [place] [address] Pito Jamil MD, FACS [address] [place] [address] [email or web address] documented as of this encounter Visit Diagnoses Not on filedocumented in this encounter Care Teams Drafting Technician Relationship Specialty Start Date End Date Renae Mullen PA [address] [place] [address] [email or web address] PCP - General 05/08/20 Carla Alvarez HOUSE DECORATOR [address] [place] [address] Historical LMR Provider 03/03/17 2 Chandrika Vidal NP [address] [place] [address] Historical LMR Provider 03/03/17 2 Shahriar Gonzalez MD Historical LMR Provider 03/03/17 Vika Mckinney, CS [email or web address] Historical LMR Provider 03/03/17 05/24/21 Eileen Santoro MD [address] [place] [address] [email or web address] Infectious Diseases 10/02/20 documented as of this encounter Additional Source Comments The information contained in this document represents components of the legal health record. It is not the complete legal health record.[facility]
--- OUTSIDE RECORDS SUMMARY | 2025-03-07 09:43 | XMS_ITS | Encounter Summary ---
Author Organization [facility] Address [address] [place] [address] Phone Care Team Providers Care Automobile Service Writer Name Role Phone Shahriar Gonzalez MD Unavailable Unava ilable Renae Mullen Primary Care Provider [phone] Eileen Santoro MD Unavailable [phone] Encounter Details Date Type Department Care Team (Late st Contact Info) Description 08/20/2024 Transcribe Orders Virtual Department 30 [place], [place] [id number] Renae Mullen PA 6 [place] [address] [email or web address] Thyroid nodule (Primary Dx) Social History Tobacco Use Types [...] Description 07/04/2025 8:00 AM EST Office Visit [facility] [address] [place] [address] [place] [address] Gali Lew, LIABILITY ANALYST [address] [facility], 1st [place] [address] 08/06/2025 9:30 AM EDT Appointment [facility] - Ul[facility]ound, [address] [address] Pito Jamil MD, FACS [address] [place] [id number] [email or web address] 08/06/2025 10:30 AM EDT Office Visit [facility] [address] [place] [address] Pito Jamil MD, FACS [address] [place] [phone] [email or web address] documented as of this encounter Visit Diagnoses Diagnosis Thyroid nodule- Primary Nontoxic uninodular goiter documented in this encounter Care Teams Automobile Service Writer Relationship Specialty Start Date End Date Renae Mullen PA [address] [place] [phone] [email or web address] PCP - General 05/08/20 Shahriar Gonzalez MD Historical LMR Provider 03/03/17 Eileen Santoro MD [address] [place] [address] [place] [address] [email or web address] Infectious Diseases 10/02/20 documented as of this encounter Additional Source Comments The information contained in this document represents components of the legal health record. It is not the complete legal health record.[facility]
--- OUTSIDE RECORDS SUMMARY | 2025-03-07 09:43 | XMS_ITS | Encounter Summary ---
Author Organization [facility] Address [address] [place] [address] Phone Care Team Providers Care Mail Room Name Role Phone Shahriar Gonzalez MD Unavailable Unava ilable Renae Mullen Primary Care Provider [phone] Eileen Santoro MD Unavailable [phone] Encounter Details Date Type Department Care Team (Latest Contact Info) Description 07/12/2024 Transcribe Orders Virtual Department 30 [place], [place] [phone] Renae Mullen PA 6 [place] [address] [email or web address] Lymphadenopathy (Primary Dx); Cervicalgia; Nonintractable headache, unspecified chronicity pattern, unspecified headache type Social History Tobacco Use Types Packs/Day [...] Description 07/04/2025 8:00 AM EST Office Visit [facility] [address] [place] [address] [place] [address] Gali Lew, CAR MECHANIC [address] [facility], 1st [place] [address] 08/06/2025 9:30 AM EDT Appointment [facility] Imaging - Ultrasound, Main [address] [address] Pito Jamil MD, FACS [address] [place] [phone] [email or web address] 08/06/2025 10:30 AM EDT Office Visit [facility] [address] [place] [address] Pito Jamil MD, FACS [address] [place] [phone] [email or web address] documented as of this encounter Visit Diagnoses Diagnosis Lymphadenopathy- Primary Enlargement of lymph nodes Cervicalgia Nonintractable headache, unspecified chronicity pattern, unspecified headache type documented in this encounter Care Teams Mail Room Relationship Specialty Start Date End Date Renae Mullen PA [address] [place] [phone] [email or web address] PCP - General 05/08/20 Shahriar Gonzalez MD Historical LMR Provider 03/03/17 Eileen Santoro MD [address] [place] [address] [address] [place] [address] [email or web address] Infectious Diseases 10/02/20 documented as of this encounter Additional Source Comments The information contained in this document represents components of the legal health record. It is not the complete legal health record.[facility]
--- OUTSIDE RECORDS SUMMARY | 2025-03-07 09:43 | XMS_ITS | Encounter Summary ---
Author Organization [facility] Address [address] [place] [address] Phone Care Team Providers Care Drawer Upfitter Name Role Phone Shahriar Gonzalez MD Unavailable Unava ilRenae Blackburn Primary Care Provider [phone] Eileen Santoro MD Unavailable [phone] Encounter Details Date Type Department Care Team (Late st Contact Info) Description 07/10/2024 Procedure Pass [facility], [facility] [address] [place] [address] Social History Tobacco Use Types Packs/Day Years [...] 07/04/2025 8:00 AM EST Office Visit [facility] [address] [place] [address] Peñuelas, NATALY [phone] Kevin Gali, CUSTOM FURRIER [address] [facility], 1st [place] [address] 08/06/2025 9:30 AM EDT Appointment [facility] - [place]ound, [address] [address] Pito Jamil MD, FACS [address] [place] [phone] [email or web address] 08/06/2025 10:30 AM EDT Office Visit [facility] [address] [place] [address] Pito Jamil MD, FACS [address] [place] [address] [email or web address] documented as of this encounter Visit Diagnoses Not on filedocumented in this encounter Care Teams Drawer Upfitter Relationship Specialty Start Date End Date Renae Mullen PA [address] [place] [phone] [email or web address] PCP - General 05/08/20 Shahriar Gonzalez MD Historical LMR Provider 03/03/17 Eileen Santoro MD [address] [place] [phone] [email or web address] 234 beds at the [facility] Infectious Diseases 10/02/20 documented as of this encounter Additional Source Comments The information contained in this document represents components of the legal health record. It is not the complete legal health record.[facility]
== END 2025-03-07 09:12 | disposition home or self-care (01) ==
LOC: HO.HSM 08:54
PROVIDERS: PCP Family Medicine; Visit Provider Psychiatry & Neurology Neurology
DX: G43.009 Migraine without aura, not intractable, without status migrainosus (principal)
CPT/HCPCS: 99214